=== PATIENT | female | born 1945 | race Caucasian/White ===

== ENCOUNTER 2019-04-23 13:52 | Outpatient (CLI) | payer MEDICARE, SELFPAY ==
--- NOTE | ~2019-04-23 | DEXA_ITS ---
Bone Density Report Name: Anitha Katz Age: 73 Sex: Female Ethnicity: White Date of : 1945 Indication: postmenopausal; hysterectomy; Referring Provider: PHYSICIAN NOT ON STAFF Study: Bone densitometry was performed. Exam Date: April 23, 2019 Accession number: [id number] Bone Density: Region BMD T-score Z-score Classification AP Spine (L1-L4) 1.081 0.3 2.7 Normal Femoral Neck (Left) 0.722 -1.1 0.9 Osteopenia Total Hip (Left) 0.906 -0.3 1.5 Normal Total Hip Bilateral Avg 0.850 -0.8 1.0 Normal Femoral Neck (Right) 0.693 -1.4 0.6 Osteopenia Total Hip (Right) 0.792 -1.2 0.5 Osteopenia World Health Organization criteria for BMD impression classify patients as: Normal (T-score at or above -1.0), Osteopenia (T-score between -1.0 and -2.5), or Osteoporosis (T-score at or below -2.5). 10-year Fracture Risk(1): Major Osteoporotic Fracture 11% Hip Fracture 2.0% Reported Risk Factors: [place] (), Neck BMD=0.693, BMI=28.2 (1) FRAX(R) Version 3.08. Fracture probability calculated for an untreated patient. Fracture probability may be lower if the patient has received treatment. Previous Exams: Region Exam Age BMD T-score BMD Change BMD Change Date g/cm2 vs Baseline vs Previous AP Spine(L1-L4) 04/23/2019 73 1.081 0.3 0.020(1.9%)# 0.014(1.3%)# 01/16/2012 66 1.067 0.2 0.006(0.6%)# 0.000(0.0%)# 07/18/2007 61 1.067 0.2 0.006(0.6%) 0.006(0.6%) 07/07/2004 58 1.061 0.1 Total Hip(Left) 04/23/2019 73 0.906 -0.3 0.045(5.2%)# -0.001(-0.2%)# 01/16/2012 66 0.908 -0.3 0.047(5.4%)# 0.017(1.9%)# 07/18/2007 61 0.890 -0.4 0.029(3.4%)* 0.029(3.4%)* 07/07/2004 58 0.861 -0.7 Total Hip(Right) 04/23/2019 73 0.792 -1.2 -0.030(-3.6%)# -0.064(-7.4%)# 01/16/2012 66 0.856 -0.7 0.034(4.1%)# 0.020(2.4%)# 07/18/2007 61 0.835 -0.9 0.014(1.7%) 0.014(1.7%) 07/07/2004 58 0.822 -1.0 *Denotes significance at 95% confidence level, LSC for AP Spine = 0.022 g/cm2, LSC for Total Hip = 0.027 g/cm2 Clinical Information Provided by Patient: Has used the following medications: HRT (i.e. estrogen/hormone therapy), Vitamin D, Calcium Has the following medical conditions: Hysterectomy Patient maximum height was 64 Menopause Age: 49 Onset of menses at age 13 Number of children 1 Impression: The patient has low bone mass, based on the Right Femoral Neck T-score.
== END 2019-04-23 13:53 | disposition home or self-care (01) ==
DX: Z78.0 Asymptomatic menopausal state (principal); M85.89 Other specified disorders of bone density and structure, multiple sites
CPT/HCPCS: 77080

== ENCOUNTER 2020-02-21 14:33 | Outpatient (CLI) | payer MEDICARE, SELFPAY ==
--- NOTE | ~2020-02-21 | MM_ITS ---
EXAMINATION: MM screening derian BI w fletcher HISTORY: Screening mammogram, family history of breast cancer in her sister. TECHNIQUE: Craniocaudal and mediolateral oblique 3-D tomosynthesis images were obtained and synthetic 2-D images were generated. CAD analysis was submitted and interpreted. COMPARISON: 02/07/2019, 01/29/2018, 01/26/2017 BREAST PARENCHYMAL COMPOSITION: There are scattered areas of fibroglandular density. FINDINGS: RIGHT BREAST: There is asymmetry in the subareolar aspect of the breast on the mediolateral oblique v iew. LEFT BREAST: There is no evidence of suspicious mass, calcification, or architectural distortion to s uggest malignancy. There has been no significant interval change. IMPRESSION: 1. Subareolar right breast asymmetry on the mediolateral oblique view. 2. Additional mammographic views and possible breast ultrasound are recommended. BI-RADS Category 0: Incomplete: Needs additional imaging evaluation. Reviewed, dictated and finalized at location A. ER CAMP COUNSELOR IMPRESSION: 1. Subareolar right breast asymmetry on the mediolateral oblique view. 2. Additional mammographic views and possible breast ultrasound are recommended . BI-RADS Category 0: Incomplete: Needs additional imaging evaluation.
== END 2020-02-21 14:34 | disposition home or self-care (01) ==
PROVIDERS: Visit Provider Nurse Practitioner Obstetrics & Gynecology
DX: Z12.31 Encounter for screening mammogram for malignant neoplasm of breast (principal); R92.8 Other abnormal and inconclusive findings on diagnostic imaging of breast
CPT/HCPCS: 77063; 77067

== ENCOUNTER 2020-03-23 12:49 | Outpatient (CLI) | payer MEDICARE, SELFPAY ==
--- NOTE | ~2020-03-23 | MM_ITS ---
EXAMINATION: MM diagnostic mammo unilat RT HISTORY: Asymmetry reported in subareolar right breast on 02/21/2020 screening mammogram TECHNIQUE: Additional 3-D tomosynthesis images of the right breast were performed and synthetic 2-D i mages were generated. CAD analysis was submitted and interpreted. COMPARISON: 01/26/2017 , 02/07/2019, 01/29/2018, 01/26/2017 bilateral digital screening mammogram ex aminations BREAST PARENCHYMAL COMPOSITION: There are scattered areas of fibroglandular density. FINDINGS: No suspicious mass or architectural distortion, malignant calcification, skin thickening or retraction or significant new or developing density is detected. IMPRESSION: 1. No mammographic evidence of malignancy 2. Routine annual mammographic screening is recommended. BI-RADS Category 1: Negative Reviewed, dictated and finalized at location A. CLERK
== END 2020-03-23 12:50 | disposition home or self-care (01) ==
LOC: ANHIMG 12:50
PROVIDERS: Visit Provider Nurse Practitioner Obstetrics & Gynecology
DX: R92.8 Other abnormal and inconclusive findings on diagnostic imaging of breast (principal)
CPT/HCPCS: 77065

== ENCOUNTER 2021-03-25 09:46 | Outpatient (CLI) | payer MEDICARE, SELFPAY ==
--- NOTE | ~2021-03-25 | MM_ITS ---
EXAMINATION: MM screening dreian BI w fletcher HISTORY: Screening mammogram, family history of breast cancer in her sister. TECHNIQUE: Craniocaudal and mediolateral oblique 3-D tomosynthesis images were obtained and synthetic 2-D images were generated. CAD analysis was submitted and interpreted. COMPARISON: 03/23/2020, 02/21/2020, 02/07/2019, 01/29/2018 BREAST PARENCHYMAL COMPOSITION: There are scattered areas of fibroglandular density. FINDINGS: There is no evidence of suspicious mass, calcification, or architectural distortion to sugg est malignancy in either breast. There has been no suspicious interval change. IMPRESSION: 1. No mammographic evidence of malignancy. 2. Recommend routine screening mammography in one year. BI-RADS Category 1: Negative Reviewed, dictated and finalized at location A. EY MAINTAINER
== END 2021-03-25 09:47 | disposition home or self-care (01) ==
LOC: ANHIMG 09:48
PROVIDERS: Visit Provider Nurse Practitioner Obstetrics & Gynecology
DX: Z12.31 Encounter for screening mammogram for malignant neoplasm of breast (principal)
CPT/HCPCS: 77063; 77067

== ENCOUNTER 2021-10-29 09:49 | Emergency (ER) | payer MEDICARE, SELFPAY ==
--- NOTE | ~2021-10-29 | XR_ITS ---
EXAMINATION: XR knee LT 3V DATE: 10/29/2021 11:02 INDICATION: Diffuse left knee pain TECHNIQUE: Three views of the left knee were obtained. COMPARISON: None. FINDINGS: Alignment is normal. No fracture or osteochondral lesion. There is moderate tricompartmenta l osteoarthritis. A small knee joint effusion is present. Soft tissues are unremarkable. IMPRESSION: 1. Moderate osteoarthritis with small knee joint effusion. Reviewed, dictated and finalized at location B.
[2021-10-29 10:02] VITALS: BP 154/74; PULSE 93; RESP 16; TEMP 36.7; O2SAT 99
--- NOTE | 2021-10-29 10:10 | ED.EXTPRO ---
HPI - Extremity Problem General Stated complaint: LEFT LEG PAIN Time Seen by Provider: 10/29/21 10:38 Source: patient and RN notes reviewed Mode of arrival: ambulatory Limitations: no limitations History of Present Illness HPI Narrative: 76-year-old female presents concern for left knee pain. She reports she has arthritis, she has had a flareup of arthritis in the last 3 weeks. She has been taking precautions to improve her arthritis pain with rest, ice, decrease in exercise. Reports her arthritis symptoms started to improve. Reports last night she was going downstairs when she felt this sharp sudden stabbing pain to the medial anterior knee. She reports she used ice throughout the night, took 2 Aleve and rested. She reports pain with bending the knee, pain with walking. She reports she cannot find position of comfort at rest. She denies any redness, swelling. Reports the knee feels slightly warmer. She denies fever, body aches, chills, sweats. MD Complaint: extremity pain Related Data Home Medications Medication Instructions Recorded Confirmed conjugated estrogens 0.3 mg tablet 0.3 mg DAILY 02/09/19 02/09/19 (Premarin) thyroid (pork) 60 mg tablet 60 mg DAILY 02/09/19 02/09/19 ([place] Thyroid) Allergies Allergy/AdvReac Type Severity Reaction Status Date / Time codeine AdvReac Mild light Verified 02/09/19 10:48 headed, nausea Review of Systems Review of Systems: CONSTITUTIONAL: Denies malaise, chills, sweats, or fever. SKIN: Denies rash or itching, open skin, laceration, abrasion, redness, swelling. MUSCULOSKELETAL: Reports left knee pain NEUROLOGIC: Denies numbness, weakness All systems reviewed & are unremarkable except as noted in HPI and below PMFSH Social History Social History Gender identity (if verbalized by the patient): Female Comments At time of signature, agree with nursing past medical, surgical, social and family history. There is no relevant family history pertinent to the presenting complaint Exam Narrative: GENERAL: Well-appearing, well-nourished, and in no acute distress. HEAD: Normocephalic, atraumatic. EYES: PERRLA, conjunctivae clear NECK: Supple. CHEST: Speaks in full sentences. No respiratory distress. HEART: Regular rate and rhythm. Normal and equal peripheral pulses. EXTREMITIES: Left knee has normal strength and sensation, normal range of motion. No edema erythema, warmth, or ecchymosis. 5/5 strength with knee flexion and extension. Normal sensation with sensitivity to light touch and pain. Mild anterior medial tenderness. No open wounds, no skin tenting, no devitalized tissue or atrophy, no trophic changes, no obvious deformity, alignment normal, nearby joints and structures intact. Distal pulses palpable and equal bilaterally, skin warm, dry, pink. Capillary refill less than 3 seconds. Lever test negative SKIN: Warm, dry, no rash. NEURO: Alert and oriented x3. PSYCH: Normal mood and affect Course Course Emergency Course: Patient is aware of diagnosis, understands and agrees to treatment plan. Anticipatory guidance given. Patient agrees to follow-up as directed and is aware of reasons to seek care at the emergency department. Portions of this record may have been created with voice recognition software Level of Care: Express Care Visit Vital Signs Vital signs: Vital Signs Temperature 98.0 F 10/29/21 10:02 Pulse Rate 93 10/29/21 10:02 Respiratory Rate 16 10/29/21 10:02 Blood Pressure 154/74 H 10/29/21 10:02 Pulse Oximetry 99 10/29/21 10:02 Oxygen Delivery Room Air 10/29/21 10:02 Temperature 98.0 F 10/29/21 10:02 Pulse Rate 93 10/29/21 10:02 Respiratory Rate 16 10/29/21 10:02 Blood Pressure 154/74 H 10/29/21 10:02 Pulse Oximetry 99 10/29/21 10:02 Oxygen Delivery Room Air 10/29/21 10:02 Reviewed. MDM - Extremity (Nontraumatic) Imaging Data My impression: Images reviewed, interpreted by nasim be
== END 2021-10-29 11:34 | disposition home or self-care (01) ==
PROVIDERS: Emergency Provider Nurse Practitioner
DX: M25.462 Effusion, left knee (principal); E03.9 Hypothyroidism, unspecified
CPT/HCPCS: 73562; 99213; G0463

== ENCOUNTER 2022-05-12 10:31 | Outpatient (CLI) | payer MEDICARE, SELFPAY ==
--- NOTE | ~2022-05-12 | MM_ITS ---
EXAMINATION: MM screening derian BI w fletcher HISTORY: Screening TECHNIQUE: Craniocaudal and mediolateral oblique 3-D tomosynthesis images were obtained and synthetic 2-D images were generated. CAD analysis was submitted and interpreted. COMPARISON: Comparison to multiple prior studies sequentially, with oldest reviewed study dated 01/13. BREAST PARENCHYMAL COMPOSITION: Breast composed of scattered areas of fibroglandular density FINDINGS: There is no evidence of suspicious mass, calcification, or architectural distortion to sugg est malignancy in either breast. There has been no suspicious interval change. IMPRESSION: 1. No mammographic evidence of malignancy. 2. Recommend routine screening mammography in one year. BI-RADS Category 1: Negative Reviewed, dictated and finalized at location A.
== END 2022-05-12 10:32 | disposition home or self-care (01) ==
PROVIDERS: PCP Internal Medicine; Visit Provider Nurse Practitioner Obstetrics & Gynecology
DX: Z12.31 Encounter for screening mammogram for malignant neoplasm of breast (principal)
CPT/HCPCS: 77063; 77067

== ENCOUNTER 2022-08-12 08:49 | Outpatient (CLI) | payer MEDICARE, SELFPAY ==
--- NOTE | ~2022-08-12 | DEXA_ITS ---
Bone Density Report Name: JOANN DIAMOND Age: 76 Sex: Female Ethnicity: White Date of : 1945 Indication: osteopenia; height loss; hysterectomy; postmenopausal Referring Provider: THUY, SVEN Study: Bone densitometry was performed. Exam Date: August 12, 2022 Accession number: [id number] Bone Density: Region BMD T-score Z-score Classification AP Spine(L1-L4) 1.052 0.0 2.6 Normal Femoral Neck (Left) 0.712 -1.2 1.0 Osteopenia Total Hip (Left) 0.869 -0.6 1.3 Normal Femoral Neck (Right) 0.691 -1.4 0.8 Osteopenia Total Hip (Right) 0.849 -0.8 1.2 Normal Total Hip Mean 0.859 -0.7 1.3 Normal World Health Organization criteria for BMD impression classify patients as: Normal (T-score at or above -1.0), Osteopenia (T-score between -1.0 and -2.5), or Osteoporosis (T-score at or below -2.5). 10-year Fracture Risk(1): Major Osteoporotic Fracture 12% Hip Fracture 2.5% Reported Risk Factors: [place] (), Neck BMD=0.691, BMI=30.1 (1) FRAX(R) Version 3.08. Fracture probability calculated for an untreated patient. Fracture probability may be lower if the patient has received treatment. Previous Exams: Region Exam Age BMD T-score BMD Change BMD Change Date g/cm2 vs Baseline vs Previous AP Spine (L1-L4) 08/12/2022 76 1.052 0.0 -0.030 (-2.8%) -0.030 (-2.8%) 04/23/2019 73 1.081 0.3 Total Hip(Left) 08/12/2022 76 0.869 -0.6 -0.037 (-4.1%) -0.037 (-4.1%) 04/23/2019 73 0.906 -0.3 Total Hip(Right) 08/12/2022 76 0.849 -0.8 0.057 (7.2%)* 0.057 (7.2%)* 04/23/2019 73 0.792 -1.2 *Denotes significance at 95% confidence level, LSC for AP Spine = 0.022 g/cm2, LSC for Total Hip = 0.027 g/cm2 Clinical Information Provided by Patient: Has used the following medications: Vitamin D, Calcium Has the following medical conditions: Hysterectomy Patient maximum height was 64 Menopause Age: 49 Onset of menses at age 12 Number of children 1 Impression: The patient has low bone mass, based on the Right Femoral Neck T-score. The patient has an estimated ten-year risk of hip fracture of 2.5% and an estimated ten-year risk of major fracture of 12%, based on the WHO FRAX algorithm. The BMD for the AP Spine (L1-L4) decreased, changing by -2.8% since the last DXA exam. The BMD for the Total Hip(Left) decreased, changing by -4.1% since the last DXA exam. Discussion: BONE DENSITY IS LOW AT ONE OR MORE SKELETAL SITES. Thi
== END 2022-08-12 08:50 | disposition home or self-care (01) ==
LOC: ANHIMG 08:54
PROVIDERS: PCP Internal Medicine; Visit Provider Internal Medicine
DX: Z13.820 Encounter for screening for osteoporosis (principal); M85.852 Other specified disorders of bone density and structure, left thigh; M85.851 Other specified disorders of bone density and structure, right thigh
CPT/HCPCS: 77080

== ENCOUNTER 2023-06-05 13:24 | Emergency (ER) | payer MEDICARE, SELFPAY ==
--- NOTE | ~2023-06-05 | CT_ITS ---
EXAMINATION: CT brain wo con DATE: 06/05/2023 14:58 INDICATION: dizzy . TECHNIQUE: Computed tomography (CT) of the head was performed without intravenous contrast. The mA wa s adjusted according to patient size. Iterative reconstruction technique was employed. The dose-lengt h product was 605.33 mGy-cm. COMPARISON: None. FINDINGS: No acute intracranial hemorrhage or extra-axial fluid collection. No hydrocephalus, mass, or herniation. No acute ischemic infarct. Unremarkable dural venous sinus attenuation. No acute osseous abnormality. The aerated spaces are clear. Mild atrophy and chronic white matter change. Atherosclerotic intracranial calcification. IMPRESSION: No acute intracranial process. Reviewed, dictated and finalized at location K.
--- NOTE | ~2023-06-05 | XR_ITS ---
EXAMINATION: XR chest 2V Exam Date/Time: 06/05/2023 19:20 CDT HISTORY: dizziness, nausea and vomiting Comparison: None. RESULT: Lines, tubes, and devices: None. Lungs and pleura: Mild peripheral and basilar reticular opacities. No focal consolidation, pleural e ffusion, or pneumothorax. Cardiomediastinal silhouette: Stable. Other: No acute osseous or upper abdominal finding. IMPRESSION: No acute cardiopulmonary process. Peripheral reticular opacities may represent chronic interstitial d isease such as UIP. Reviewed, dictated and finalized at location K. IMPRESSION: No acute cardiopulmonary process. Peripheral reticular opacities may represent chronic interstitial disease such as UIP.
[2023-06-05 13:34] VITALS: BP 120/53; PULSE 84; RESP 15; TEMP 36.3; O2SAT 100
--- NOTE | 2023-06-05 14:37 | ED.GENADULT ---
HPI - General Adult General Chief complaint: Nausea/Vomiting/Diarrhea <Elizabeth Amato June, Last Filed: 06/05/23 14:44> Stated complaint: N/V/D, dizzy <Elizabeth Amato June, Last Filed: 06/05/23 14:44> Time Seen by Provider: 06/05/23 14:38 <Elizabeth Amato June, Last Filed: 06/05/23 14:44> Focused HPI: Anitha Katz is a 77 y/o female who presents today with reports of having onset of feeling light headed at around 1145, she felt like she was drunk and she couldn't walk straight, she proceed to try to eat something and that didn't help and then she started to vomit. She states she has continued to feel light headed, head spinning and nauseated/ no headache/ no vision changes Denies abdominal pain. No recent illness GENERAL: Well-appearing, well-nourished, and in no acute distress. HEAD: Normocephalic, atraumatic. CHEST: Clear to auscultation. ?No respiratory distress. HEART: Regular rate and rhythm.? NEURO: ?Alert and oriented x3. Patient screened in triage and initial orders placed.? ?Additional care and disposition to be based upon?diagnostic testing and treatment. <Elizabeth Amato June, Last Filed: 06/05/23 14:44> Related Data Home medications: Home Medications Medication Instructions Recorded Confirmed conjugated estrogens 0.3 mg tablet 0.3 mg DAILY 02/09/19 02/09/19 (Premarin) thyroid (pork) 60 mg tablet 60 mg DAILY 02/09/19 02/09/19 ([place] Thyroid) <Elizabeth Amato June, Last Filed: 06/05/23 14:44> Allergies/adverse reactions: Allergies Allergy/AdvReac Type Severity Reaction Status Date / Time codeine AdvReac Mild light Verified 02/09/19 10:48 headed, nausea <Elizabeth Amato June, Last Filed: 06/05/23 14:44> Review of Systems Review of Systems: CONSTITUTIONAL: Denies fever EYES: Denies visual changes CARDIOVASCULAR: Denies chest pain, palpitations RESPIRATORY: Denies shortness of breath GASTROINTESTINAL: Reports nausea, vomiting. Denies abdominal pain GENITOURINARY: Denies dysuria or hematuria. MUSCULOSKELETAL: Denies back pain NEUROLOGIC: Denies numbness, or weakness. <Madonna Gordon PA-C - Last Filed: 06/05/23 20:58> All systems reviewed & are unremarkable except as noted in HPI and below <Madonna Gordon PA-C - Last Filed: 06/05/23 20:58> PMFSH Past Medical History Medical History: Medical History (Updated 06/05/23 @ 20:46 by Madonna Gordon PA-C) History of hypothyroidism <Elizabeth Amato June, NURSE RECEPTIONIST - Last Filed: 06/05/23 14:44> Social History Social History: Social History (Updated 06/05/23 @ 20:46 by Madonna Gordon PA-C) Substance use: never Gender identity (if verbalized by the patient): Female <Elizabeth Amato June, NURSE RECEPTIONIST - Last Filed: 06/05/23 14:44> Exam Narrative: GENERAL: Well-appearing, well-nourished, and in no acute distress. HEAD: Normocephalic, atraumatic. EYES: PERRLA and EOMI. ENT: Nares clear, no rhinorrhea or epistaxis. Mucous membranes moist. Oropharynx without tonsillar hypertrophy exudate or other lesions. Bilateral TMs pearly zuniga non-bulging NECK: Supple. No adenopathy or masses. No JVD CHEST: Clear to auscultation. No respiratory distress. No wheezes rales or rhonchi HEART: Regular rate and rhythm. No murmur heard. Normal peripheral pulses. EXTREMITIES: Normal range of motion. No edema. Strength equal in bilateral upper and lower extremities (5/5) SKIN: Warm, dry, no rash. NEURO: No focal deficits. Alert and oriented x3. CN II-XII grossly intact. Normal gait PSYCH: Normal mood and affect <Madonna Gordon PA-C - Last Filed: 06/05/23 20:58> Course Course Emergency Course: Patient and family updated on workup and agree with plan of care <Madonna Gordon PA-C - Last Filed: 06/05/23 20:58> Vital Signs Vital signs: Vital Signs Temperature 97.4 F L 06/05/23 13:34 Pulse Rate 84 06/05/23 13:34 Respiratory Rate 15 06/05/23 13:34 Blood Pressure 120/53 L 06/05/23 13:34 P
--- NOTE | 2023-06-05 14:44 | ECG_ITS ---
SEE SCANNED COPY FOR CONFIRMED REPORT MTDD
[2023-06-05] MEDS: MECLIZINE HCL 25 MG TABLET PO (15:42)
[2023-06-05] MEDS: ONDANSETRON INJ 4 MG/2 ML VIAL IV PUSH (15:42)
[2023-06-05 15:53] LABS: Basophils Percent Auto 0.3 % (0.2-1.2); Eosinophils Percent Auto 0.3 % (0-4.4); Hematocrit 40.2 % (37.0-47.0); Hemoglobin 13.7 g/dL (12.0-15.0); Immature Granulocyte Absolute 0.04 K/mm3 (0.00-0.031); Immature Granulocyte Percent A 0.4 % (0-0.5); Lymphocytes Absolute Auto 1.01 K/mm3 (0.9-3.2); Lymphocytes Percent Auto 9.5 % (18.3-44.2); Mean Corpuscular HGB Conc 34.1 g/dl (32-36); Mean Corpuscular Hemoglobin 31.4 pg (26-34); Mean Corpuscular Volume 92.2 fl (80-100); Mean Platelet Volume 9.5 fl (7.4-10.4); Monocytes Absolute Auto 0.6 K/mm3 (0.1-0.6); Monocytes Percent Auto 5.9 % (2.6-8.5); Neutrophils Absolute Auto 8.9 K/mm3 (1.3-6.7); Neutrophils Percent Auto 83.6 % (45.5-73.1); Platelet Count Result 276 k/mm3 (150-375); Red Blood Count 4.36 M/mm3 (4.2-5.4); Red Cell Distribution Width 13.1 % (11.5-14.5); White Blood Count 10.6 K/mm3 (4.5-10.0)
[2023-06-05 16:04] LABS: Alanine Aminotransferase 21 U/L (6-35); Albumin Level 4.6 g/dL (3.5-5.1); Alkaline Phosphatase 99 U/L (38-126); Anion Gap 5 mmol/L (4-12); Aspartate Amino Transferase 32 U/L (14-36); Bilirubin,Total 0.7 mg/dL (0.2-1.3); Blood Urea Nitrogen 19 mg/dL (7-17); Calcium 10.2 mg/dL (8.4-10.2); Carbon Dioxide 29 mmol/L (22-30); Chloride 100 mmol/L (98-107); Estimated CRCL calculation 49 ml/min; Estimated Glomerular Filt Rate > 60; Glucose 127 mg/dL (65-110); Potassium 3.7 mmol/L (3.4-5.0); Sodium 134 mmol/L (137-145)
[2023-06-05 16:18] LABS: Troponin I < 0.012 ng/mL (0.000-0.034)
[2023-06-05] MEDS: SODIUM CHLORIDE 0.9% IV 500 ML 999 ML IV CONT (19:30)
[2023-06-05 19:33] VITALS: BP 143/58; PULSE 79; RESP 18; O2SAT 100
[2023-06-05 19:45] LABS: Appearance Urine Clear (Clear); Bacteria Urine Rare /hpf; Bilirubin Urine Negative (Negative); Blood Urine Negative (Negative); Color Urine Yellow (Yellow); Glucose Urine UA Negative (Negative); Ketones Urine 3+ mg/dL (Negative); Leukocyte Esterase Ur 1+ LEU/UL (Negative); Need Manual Microscopic Reviewed; Nitrate Urine Negative (Negative); Non Pathogenic Casts 0-2; Protein Urine Trace mg/dL (Negative); Specific Grav Ur 1.019 (1.001-1.035); Squamous Epithelial Cell Urine None Seen /hpf (Few); Urobilinogen Urine 0.2 mg/dL (<2.0); WBC Urine 0-5 /hpf (0-3); pH Urine 7.5 (5.0-9.0)
[2023-06-05 19:55] LABS: Add Urine Microscopic? YES
== END 2023-06-05 21:09 | disposition home or self-care (01) ==
PROVIDERS: Nurse Practitioner Family; Emergency Provider Physician Assistant; PCP Internal Medicine
DX: R42 Dizziness and giddiness (principal); E03.9 Hypothyroidism, unspecified; R94.31 Abnormal electrocardiogram [ECG] [EKG]
CPT/HCPCS: 36415; 70450; 71046; 80053; 81001; 84443; 84484; 85025; 93005; 96361; 96374; 99284; A9270; J2405; J7040

== ENCOUNTER 2023-07-05 13:55 | Outpatient (CLI) | payer MEDICARE, SELFPAY ==
--- NOTE | ~2023-07-05 | MM_ITS ---
EXAMINATION: MM screening derian BI w fletcher HISTORY: Screening TECHNIQUE: Craniocaudal and mediolateral oblique 3-D tomosynthesis images were obtained and synthetic 2-D images were generated. CAD analysis was submitted and interpreted. COMPARISON: Comparison to multiple prior studies sequentially, with oldest reviewed study dated 01/13. BREAST PARENCHYMAL COMPOSITION: Not dense: There are scattered areas of fibroglandular density. FINDINGS: There are developing asymmetries in the upper central aspect of the right breast with possi ble architectural distortion on MLO view. The left breast is stable without evidence for malignancy. IMPRESSION: 1. Developing asymmetries of the right breast. 2. Additional mammographic views and possible breast ultrasound are recommended. BI-RADS Category 0: Incomplete: Needs additional imaging evaluation. Reviewed, dictated and finalized at location A. IMPRESSION: 1. Developing asymmetries of the right breast. 2. Additional mammographic views and possible breast ultrasound are recommended . BI-RADS Category 0: Incomplete: Needs additional imaging evaluation.
== END 2023-07-05 13:56 | disposition home or self-care (01) ==
LOC: ANHIMG 13:59
PROVIDERS: PCP Internal Medicine; Visit Provider Nurse Practitioner Obstetrics & Gynecology
DX: Z12.31 Encounter for screening mammogram for malignant neoplasm of breast (principal); R92.8 Other abnormal and inconclusive findings on diagnostic imaging of breast
CPT/HCPCS: 77063; 77067

== ENCOUNTER 2023-07-24 12:49 | Outpatient (CLI) | payer MEDICARE, SELFPAY ==
--- NOTE | ~2023-07-24 | MMUS_ITS ---
EXAMINATION: MM diagnostic derian RT w fletcher, US breast RT limited HISTORY: Follow-up right breast asymmetries TECHNIQUE: Additional 3-D tomosynthesis images of the right breast were performed and synthetic 2-D i mages were generated. CAD analysis was submitted and interpreted. High resolution Limited right breas t ultrasound was performed. COMPARISON: Comparison to multiple prior studies sequentially, with oldest reviewed study dated 01/14. BREAST PARENCHYMAL COMPOSITION: Not dense: There are scattered areas of fibroglandular density. FINDINGS: MAMMOGRAPHIC FINDINGS: The areas of nodular asymmetry in the right breast are less apparent with spot compression and mediol ateral views, likely superimposed fibroglandular tissue. ULTRASOUND: Limited right breast ultrasound: Normal heterogeneous echotexture without focal solid or cystic mass. IMPRESSION: 1. No evidence for malignancy in the right breast. 2. Routine yearly screening mammogram and regular clinical breast examination are recommended. BI-RADS Category 1: Negative Reviewed, dictated and finalized at location B. IMPRESSION: 1. No evidence for malignancy in the right breast. 2. Routine yearly screening mammogram and regular clinical breast examination a re recommended. BI-RADS Category 1: Negative
== END 2023-07-24 12:50 | disposition home or self-care (01) ==
PROVIDERS: PCP Internal Medicine; Visit Provider Nurse Practitioner Obstetrics & Gynecology
DX: R92.8 Other abnormal and inconclusive findings on diagnostic imaging of breast (principal)
CPT/HCPCS: 76642; 77061; 77065; G0279

== ENCOUNTER 2024-08-15 09:59 | Outpatient (CLI) | payer MEDICARE, SELFPAY ==
--- NOTE | ~2024-08-15 | MM_ITS ---
EXAMINATION: MM screening derian BI w fletcher HISTORY: Screening mammogram, family history of breast cancer in her sister. TECHNIQUE: Craniocaudal and mediolateral oblique 3-D tomosynthesis images were obtained and synthetic 2-D images were generated. CAD analysis was submitted and interpreted. COMPARISON: 07/05/2023, 05/12/2022, 03/25/2020, 02/21/2020 BREAST PARENCHYMAL COMPOSITION:Not Dense. There are scattered areas of fibroglandular density. FINDINGS: No suspicious mass, calcification, or architectural distortion are identified in either jose ast to suggest malignancy. There has been no suspicious interval change. IMPRESSION: No mammographic evidence of malignancy. Recommend routine screening mammography in one year. BI-RADS Category 1: Negative Reviewed, dictated and finalized at location .
--- OUTSIDE RECORDS SUMMARY | 2024-08-15 10:17 | XMS_ITS | Encounter Summary ---
Author Organization [facility] Address [address] [place] [address] Care Team Providers Care Senior Quality Technician Name Role Phone Raul Gutierrez MD Primary Care Provider [phone] Encounter Details Date Type Department Care Team (Late st Contact Info) Description 11/01/2005 Outpatient Historical [facility] Internal Medicine [facility] [address] [place] [id number] Raul Gutierrez MD [address] [place] [address] Social History Tobacco Use Types Packs/Day Years Used Date Smoking Tobacco: Never Assessed Comments Unknown Sex and Gender Information Value Date Recorded Sex Assigned at Not on file Legal 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
--- OUTSIDE RECORDS SUMMARY | 2024-08-15 10:17 | XMS_ITS | Clinical Summary ---
Author Organization [employer] Address [address] [place] [address] Care Team Providers Care Nurses' Association Counselor Name Role Phone Unavailable Primary Care Provider Unavailabl e Allergies No known active allergies Medications VITAMIN C 500 mg Oral CpSR 1 Every Day 30.00 0 11/30/2006 Active FOLIC ACID 0.8 mgg Oral TabIndications:R outine general medical examination at a health care facility Take 800 mcg by mouth daily. Active VITAMIN B-2 25 mg Oral TabIndications:R outine general medical examination at a health care facility Take 12.5 Tabs by mouth daily. Active VITAMIN B-6 25 mg Oral TabIndications:R outine general medical examination at a health care facility Take 12.5 mg by mouth daily. Active VITAMIN B-12 POIndications:Ro utine general medical examination at a health care facility Take by mouth. Active ASPIRIN 81 mg Oral TabIndications:R outine general medical examination at a health care facility Take 81 mg by mouth daily. Active CALCIUM CARB/VIT D3/MINERALS (CALTRATE 600+D PLUS MINERALS ORAL) Take 2 Tabs by mouth daily. Active PREMARIN 0.3 mg tablet 10/27/2014 Active thyroid, pork, (ARMOUR THYROID) 60 mg tablet Take 1 Tablet (60 mg) by mouth daily. 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 11/23/2007 Plantar fascial fibromatosis 05/23/2005 11/23/2007 Hematuria 12/20/2004 11/23/2007 Overview (03/10/2010): Updating IMO/ICD9 Code and Description Lumbago 12/20/2004 11/23/2007 Routine general medical exam ination at a health care facility 11/16/2004 11/23/2007 HYPOTHYROIDISM NOS 11/15/2004 5 Abnormal mammogram, unspecified 11/15/2004 11/23/2007 Immunizations Immunization Administration Dates Next Due (PNEUMOVAX 23)(50 YRS UP) PN EUMOCOCCAL POLYSACCHARIDE (PPV23) 0.5 ML, IM 12/22/2014 (TDVAX)(7 YRS UP) TETANUS AN D DIPHTHERIA TOXOIDS, ADSORBED (2 LF OF TETANUS TOXOID AND 2 LF OF DIPHTHERIA TOXOID), 0.5ML (PF), IM 11/01/2005 Influenza Vaccine High Dose 65+ Yrs IM 5,12/20/2013 Family History Medical History Relation Name Comments Colon Cancer Neg Hx Relation Name Status Comments Father Mother Social History Tobacco Use Types Packs/Day Years Used Date Smoking Tobacco: Never Smokeless Tobacco: Never Alcohol Use Standard Drinks/Week Comments Yes 0 (1 standard drink = 0.6 oz pur e alcohol) rarely Comments No Sex and Gender Information Value Date Recorded Sex Assigned at Not on file Legal Sex Female 5:20 AM TAILMAN Gender Identity Not on file Sexual Orientation Not on file Occupation Industry Job Start Date Job End Date Not on file Not on file Not on file Not on file Last Filed Vital Signs Vital Sign Reading Time Taken Comments Blood Pressure 116/70 12/22/2014 9:17 AM TAILMAN Pulse 76 12/22/2014 9:17 AM TAILMAN Temperature 36.4 C (97.6 F) 12/22/2014 9:17 AM TAILMAN Respiratory Rate 16 12/22/2014 9:17 AM TAILMAN Oxygen Saturation 95% 02/24/2014 8:50 AM TAILMAN Inhaled Oxygen Concentration - - Weight 71.6 kg (157 lb 12.8 oz) 12/22/2014 9:17 AM TAILMAN Height 165.1 cm (5' 5) 12/22/2014 9:17 AM TAILMAN Body Mass Index 26.26 12/22/2014 9:17 AM TAILMAN Plan of Treatment Health Maintenance Due Date Last Done Comments ZOSTER VACCINE (1 of 2) 1994 DTAP/TDAP/TD VACCINES (1 - Tdap) 11/02/2005 11/02/19 06 PNEUMOCOCCAL VACCINE 50+ YEA RS (2 of 2 - PCV) 12/23/2015 12/22/2014 OSTEOPOROSIS SCREENING 01/22/2019 4, 01/16/2012 (Previously completed), 07/18/2007 RSV VACCINE (60+ or ) (1 - 1-dose 75+ series) 09/29/2019 INFLUENZA VACCINE (#1) 2023 12/22/2014, 2013 COLORECTAL SCREENING Discontinued 02/24/2014, 02/24/2014, 11/13/2004 Colorectal Cancer Screening Discontinued FIT-DNA Q 3 years Discontinued FIT/FOBT Q 1 year Discontinued Flex Sig/CT Colonography Q 5 years Discontinued Procedures Procedure Name Priority Date/Time Associated Diagnosis Comments XR DEXA BONE DENSITY AXIAL 1 OR MORE SITES Routine 01/22/2014 3:01 PM TAILMAN Post-menopausal from Last 3 Months or Most Recently Relevant to Health Maintenance Results * XR DEXA BONE DENSITY AXIAL 1 OR MORE SITES (01/22/2014 3:01 PM TAILMAN) Anatomical Region Laterality Modality Digital Radiogra phy 01/22/2014 2:5 3 PM TAILMAN Narrative 01/22/2014 3:33 PM TAILMAN XR DEXA BONE DENSITY AXIAL 1 OR MORE SITES Dictated from Location 1 ([facility]) HISTORY: 68 yo F with postmenopausal symptoms on calcium supplementation needing evaluation for osteoporosis. PROCEDURE: Using a [employer] dual energy x-ray absorptiometry system, the patient's bone mineral density was measured over the lumbar spine and femoral necks. Comparison was made to age and sex matched normal values. FINDINGS: Lumbar Spine (L1-L4) Bone Mineral Density = 1.223 gm/cm2 Compared to young adult (T-score), difference of +0.4 Standard Deviations. The patient's spine BMD is normal when compared to that of a young adult. Left Femoral Neck Bone Mineral Density = 0.867 gm/cm2 Compared to young adult (T-score), difference of -1.2 Standard Deviations. The patient's left femoral neck BMD is osteopenic when compared to that of a young adult. Right Femoral Neck Bone Mineral Density = 0.839 gm/cm2 Compared to young adult (T-score), difference of -1.4 Standard Deviations. The patient's right femoral neck BMD is osteopenic when compared to that of a young adult. No prior DEXA studies are available for comparison. Procedure Note Jah Little, DO - 01/22/2014 XR DEXA BONE DENSITY AXIAL 1 OR MORE SITES Dictated from Location 1 ([facility]) HISTORY: 68 yo F with postmenopausal symptoms on calcium supplementation needing evaluation for osteoporosis. PROCEDURE: Using a [employer] dual energy x-ray absorptiometry system, the patient's bone mineral density was measured over the lumbar spine and femoral necks. Comparison was made to age and sex matched normal values. FINDINGS: Lumbar Spine (L1-L4) Bone Mineral Density = 1.223 gm/cm2 Compared to young adult (T-score), difference of +0.4 Standard Deviations. The patient's spine BMD is normal when compared to that of a young adult. Left Femoral Neck Bone Mineral Density = 0.867 gm/cm2 Compared to young adult (T-score), difference of -1.2 Standard Deviations. The patient's left femoral neck BMD is osteopenic when compared to that of a young adult. Right Femoral Neck Bone Mineral Density = 0.839 gm/cm2 Compared to young adult (T-score), difference of -1.4 Standard Deviations. The patient's right femoral neck BMD is osteopenic when compared to that of a young adult. No prior DEXA studies are available for comparison. Raul Gutierrez MD DIAGNOSTIC IMAGING ORDERABLES Final Result from Last 3 Months or Most Recently Relevant to Health Maintenance Insurance MEDICARE PART A AND B [employer] Advance Directives For more information, please contact: [phone] Documents on File Type Date Recorded Patient Superintendent Job Expl anation Advance Directive POA 12/28/2011 1:59 PM Advance Directive POA Advance Directive Living Will 12/28/2011 * Full Code (Latest Code Status on File) Date Activated Date Inactivated Comments 02/24/2014 7:52 AM 02/24/2014 11:20 AM
--- OUTSIDE RECORDS SUMMARY | 2024-08-15 10:17 | XMS_ITS | Encounter Summary ---
Author Organization [facility] Address [address] [place] [address] Care Team Providers Care Cafe Aide Name Role Phone Raul Gutierrez MD Primary Care Provider [phone] Encounter Details Date Type Department Care Team (Latest Contact Info) Description 05/09/2006 Outpatient Historical [facility] Internal Medicine [place] [address] [place] [address] Raul Gutierrez MD [address] [place] [address] Other Abnormal Clinical Finding (Primary Dx) Social History Tobacco Use Types Packs/Day Years Used Date Smoking Tobacco: Never Assessed Comments Unknown Sex and Gender Information Value Date Recorded Sex Assigned at Not on file Legal Sex Female 5:20 AM PATIENT ACCESS DIRECTOR Gender Identity Not on file Sexual Orientation Not on file documented as of this encounter Plan of Treatment Not on file documented as of this encounter Procedures Procedure Name Priority Date/Time Associated Diagnosis Comments LIPID PANEL Routine 05/09/2006 10:20 AM CDT documented in this encounter Results * (ABNORMAL) LIPID PANEL (05/09/2006 10:20 AM CDT) CHOLESTEROL 197 100 - 199 mg/dL INTERFACE SYSTEM TRIGLYCERIDE 60 10 - 149 mg/dL INTERFACE SYSTEM HDL 82(H) 40 - 59 mg/dL INTERFACE SYSTEM CHOL/HDL RATIO 2.4 2.0 - 5.0 INTER FACE SYSTEM LDL CALCULATED 103(H) <=99 mg/dL INTERFACE SYSTEM LIPID PANEL COMMENT See Below INTERFACE SYSTEM Comment: The adult ATP and pediatric NCEP classifications for lipids are available on the [facility] Intranet at: [email or web address] Select: Lab Policies and Procedures Select: Reference Ranges - Lipids 05/09/2006 10:2 0 AM CDT us Raul Gutierrez MD CHEMISTRY ORDERABLES Edited INTERFACE SYSTEM Refer to clinic/hospital department documented in this encounter Visit Diagnoses Diagnosis Other abnormal clinical finding- Primary documented in this encounter Care Teams Cafe Aide Relationship Specialty Start Date End Date Raul Gutierrez MD [address] [place] [address] PCP - General 12/20/04 03/25/15 documented as of this encounter
--- OUTSIDE RECORDS SUMMARY | 2024-08-15 10:17 | XMS_ITS | Encounter Summary ---
Author Organization [facility] Address [address] [place] [address] Care Team Providers Care Stenographer Print Shop Name Role Phone Raul Gutierrez MD Primary Care Provider [phone] Encounter Details Date Type Department Care Team (Late st Contact Info) Description 11/01/2005 Orders Only [facility] [address] [place] [address] Raul Gutierrez MD [address] [place] [address] Social History Tobacco Use Types Packs/Day Years Used Date Smoking Tobacco: Never Assessed Comments Unknown Sex and Gender Information Value Date Recorded Sex Assigned at Not on file Legal Sex Female 5:20 AM TUFTER OPERATOR Gender Identity Not on file Sexual Orientation Not on file documented as of this encounter Progress Notes * Raul Gutierrez MD - 11/27/2007 6:12 PM CDT BLOOD PRESSURE: 100/62 Right Arm Sitting PULSE: 68 Right Radial, Regular RESPIRATIONS: 18 WEIGHT: 159lbs TEMPERATURE: 97.8??f Oral HEIGHT: 64in NURSE NAME: Kiya Kaur S ALLERGIES: No known drug allergies. MEDICATIONS: Medication list current. CHIEF COMPLAINT f/u thyroid HISTORY: HISTORY: 244.9-HYPOTHYROIDISM The hypothyroidism has not changed. The patient denies any symptoms of hypothyroidism such as dry skin, hoarseness, loss of energy, cold intolerance, or weight gain. No complications noted from the medication presently being used. No recent laboratory work done.the pt notes sheis stable on her current thyroid meds. V70.0-ROUTINE GENERAL MEDICAL EXAMINATION The patient is doing well with no specific complaints noted. The patient is here for a routine examination. No significant complaints noted.the pt is here for a pe and the pt notes that overall she feels well. the pt had a ct of the abdomen last yr showing a granuloma in the lung that was calcified and hepatic cysts. the pt notes no abd or pulmonary symptoms. the pt has hx of hypothyroidism and the pt is on thyroid meds for this. CURRENT PROBLEM LIST: 244.9 HYPOTHYROIDISM 599.7 HEMATURIA 724.2 LOW BACK PAIN 728.71 PLANTAR FASCIITIS 793.80 UNSPECIFIED ABNORMAL MAMMOGRAM V70.0 ROUTINE GENERAL MEDICAL EXAMINATION CURRENT MEDICATION LIST: CALCIUM 500/D ORAL TABLET 500-200 MG-UNIT, 2 Every Day THYROID ORAL TABLET 60 MG, 1 Every Day MULTIVITAMINS ORAL TABLET, 1 Every Day FOLIC ACID ORAL TABLET 800 MCG, 1 Every Day VITAMIN B COMPLEX ORAL TABLET, 1 Every Day PREMARIN ORAL TABLET 0.3 MG, 1 Every Day BIOTIN ORAL TABLET 2.5 MG, PANTOTHENIC ACID ORAL TABLET 100 MG, 1/2 Every Day NAPROSYN ORAL TABLET 375 MG, 1 Two Times A Day VITAMIN B-1 ORAL TABLET 50 MG, VITAMIN B-2 ORAL TABLET 25 MG, 1/2 Every Day VITAMIN B-3 ORAL TABLET 100 MG, 1/2 Every Day VITAMIN B-6 ORAL TABLET 25 MG, 1/2 Every Day CURRENT ALLERGY LIST: NKDA ROS: GENERAL: Normal activity and energy level, no change in appetite. No major weight gain or loss. No malaise, chills, fever, diaphoresis. ALLERGIC/IMMUNOLOGIC: No hay fever or history of environmental allergies. No chronic problems with immunity. EYES: No vision changes or diplopia. ENT: No hearing loss, epistaxis, hoarseness or dysphagia. No sinus congestion. ENDOCRINE: No heat or cold intolerance, no excessive thirst. CARDIAC: No chest pain, palpitations, orthopnea, dyspnea on exertion, or paroxysmal nocturnal dyspnea. RESPIRATORY: No dyspnea, cough, hemoptysis or wheezing. SKIN/BREAST/CHEST: No rashes or non-healing lesions. No breast symptoms noted. HEMATOLOGIC/LYMPHATIC: No anemia, easy bruising, bleeding or swollen nodes. : No frequency, urgency, hematuria or dysuria. GI: No abdominal pain, nausea, vomiting, diarrhea, constipation, melena, or hematochezia. NEUROLOGIC: No weakness, dizziness, loss of consciousness, transient ischemic symptoms, or seizures. MUSCULOSKELETAL: No muscle or joint pain, weakness, swelling or inflammation. No restriction of motion, no atrophy or backache. PSYCHIATRIC: No increased nervousness, mood changes or depression. Coping well. PAST MEDICAL HISTORY: MEDICAL: Hypothyroidism. SURGICAL: Dilatation and curettage of the uterus, hysterectomy. ALLERGIES/ADVERSE REACTIONS: No known drug allergies. FAMILY HISTORY: FATHER: The cause of was heart disease. MOTHER: The mother is living. Illnesses: Heart disease, hypertension. SOCIAL HISTORY: MARITAL HISTORY: , living with spouse. TOBACCO USE: Has no significant smoking history. ALCOHOL: Drinks a minimal amount of alcohol. PHYSICAL EXAMINATION: CONSTITUTIONAL: GENERAL APPEARANCE: Healthy appearing patient in no distress. EYES: CONJUNCTIVAE/LIDS: Conjunctivae and lids appear normal. PUPILS: Pupils equal and normally reactive to light and accommodation. EARS, NOSE, MOUTH AND THROAT: EXTERNAL/EARS AND NOSE: Overall appearance normal with no scars, lesions or masses. EARS: Tympanic membranes shiny without retraction. Canals unremarkable. Hearing grossly normal. NOSE (AND SINUS): No abnormality of the nose or sinuses is noted. ORAL: Inspection of gums, lips, palate, and teeth normal. No scars, lesions, or masses. Oral mucosaunremarkable with non-inflamed posterior pharynx. NECK/THYROID: Trachea midline. No thyroid enlargement, tenderness, or mass. No supraclavicular or cervical adenopathy. RESPIRATORY: Clear to auscultation and percussion. Normal respiratory effort. CARDIOVASCULAR: CARDIAC: Regular rhythm. No murmurs, rubs, or gallops. ARTERIAL: Aortic pulses of normal amplitude with no bruits. JUGULAR VEINS Jugular veins within normal limits. EDEMA/VARICOSITIES OF EXTREMITIES: No edema or varicosities. LYMPHATICS: No lymphadenopathy in the neck, axillae, or groin. GASTROINTESTINAL: ABDOMEN: Soft, non-tender, without masses. Bowel sounds active. LIVER/SPLEEN/KIDNEY: No hepatosplenomegaly, tenderness or nodularity. Kidneys not palpable. MUSCULOSKELETAL EXAM: EXTREMITIES: PE/MS/BILAT UPPER EXT No misalignment or tenderness. Full range of motion. Normal stability, strength and tone. BILATERAL LOWER EXTREMITIES: No misalignment or tenderness. Full range of motion. Normal stability,strength and tone. SKIN: SKIN: Warm, dry, no diaphoresis, no significant lesions, irritation, rashes or ulcers. No induration, obvious subcutaneous nodules or tightening. NEUROLOGIC: CRANIAL NERVES: manager stylist II-XII grossly intact. PSYCHIATRIC: Judgment appropriate. Oriented. Normal memory. Mood and affect appropriate. ASSESSMENT/PLAN: 244.9-HYPOTHYROIDISM ASSESSMENT: The patient's hypothyroidism is unchanged. Will not change medication, continue to monitor for complications. Will check laboratory to assess disease effect, to assess medication effect. Clinical guidelines reviewed. Protocol reviewed.the pt will cont on her current thyroid med and will adjust this based on the lab tests. V70.0-ROUTINE GENERAL MEDICAL EXAMINATION ASSESSMENT: The patient is doing well and no distinct problems were identified on exam.the pt will cont with diet and exercise. will check blood work and will also check a us of the liver and gb and a chest x-ray. the pt will call back if she has any complaints. a td will be given today. LAB ORDERS: Order number: [id number] Test Ordered: LIPID PANEL 1078 Order number: [id number] Test Ordered: ALT 1294 Order number: [id number] Test Ordered: BASIC METABOLIC PANEL 1607 Order number: [id number] Test Ordered: TSH 1720 Order number: [id number] Test Ordered: CHEST XRAY Order number: [id number] Test Ordered: US LIVER Order number: [id number] Test Ordered: INJ-TETANUS & DIPTHERIA TOXOID [id number] HEALTH MAINTENANCE: LAST MAMMOGRAM DATE: 07/19. LAST DATE COLONOSCOPY: 11/17. ( normal) RETURN VISIT : Patient instructed to return in 1 year. Electronically Signed by: Raul Gutierrez MD on Tuesday, November 01, 2005 documented in this encounter Plan of Treatment Not on file documented as of this encounter Visit Diagnoses Not on filedocumented in this encounter Care Teams Stenographer Print Shop Relationship Specialty Start Date End Date Raul Gutierrez MD [address] [place] [address] PCP - General 12/20/04 03/25/15 documented as of this encounter
--- OUTSIDE RECORDS SUMMARY | 2024-08-15 10:17 | XMS_ITS | Encounter Summary ---
Author Organization [facility] Address [address] [place] [address] Care Team Providers Care Call Person Name Role Phone Raul Gutierrez MD Primary Care Provider [phone] Encounter Details Date Type Department Care Team (Late st Contact Info) Description 05/23/2005 Outpatient Historical [facility] [place] Internal Medicine [facility] 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 Gender Identity Not on file Sexual Orientation Not on file documented as of this encounter Last Filed Vital Signs Vital Sign Reading Time Taken Comments Blood Pressure 130/70 05/23/2005 1:15 PM CDT Pulse 88 05/23/2005 1:15 PM CDT Temperature 36.9 C (98.5 F) 05/23/2005 1:15 PM CDT Respiratory Rate 16 05/23/2005 1:15 PM CDT Oxygen Saturation - - Inhaled Oxygen Concentration - - Weight 73.5 kg (162 lb) 05/23/2005 1:15 PM CDT Height 162.6 cm (5' 4) 05/23/2005 1:15 PM CDT Body Mass Index 27.81 05/23/2005 1:15 PM CDT documented in this encounter Plan of Treatment Not on file documented as of this encounter Visit Diagnoses Not on filedocumented in this encounter Care Teams Call Person Relationship Specialty Start Date End Date Raul Gutierrez MD [address] [place] [address] PCP - General 12/20/04 03/25/15 documented as of this encounter
--- OUTSIDE RECORDS SUMMARY | 2024-08-15 10:17 | XMS_ITS | Encounter Summary ---
Author Organization [facility] Address [address] [place] [address] Care Team Providers Care Chemical Production Engineer Name Role Phone Raul Gutierrez MD Primary Care Provider Encounter Details Date Type Department Care Team (Late st Contact Info) Description 10/27/2003 Outpatient Historical [facility] Internal Medicine [facility] [address] [place] [id number] Raul Gutierrez MD [address] [place] [address] Social History Tobacco Use Types Packs/Day Years Used Date Smoking Tobacco: Never Assessed Comments Unknown Sex and Gender Information Value Date Recorded Sex Assigned at Not on file Legal Sex Female 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
--- OUTSIDE RECORDS SUMMARY | 2024-08-15 10:17 | XMS_ITS | Encounter Summary ---
Author Organization [facility] Address [address] [place] [address] Care Team Providers Care Gaming Worker Name Role Phone Raul Gutierrez MD Primary Care Provider [phone] Encounter Details Date Type Department Care Team (Late st Contact Info) Description 11/30/2006 Orders Only [facility] [address] [place] [address] Raul Gutierrez MD [address] [place] [address] Social History Tobacco Use Types Packs/Day Years Used Date Smoking Tobacco: Never Assessed Comments Unknown Sex and Gender Information Value Date Recorded Sex Assigned at Not on file Legal Sex Female 5:20 AM OPHTHALMIC TECHNOLOGIST Gender Identity Not on file Sexual Orientation Not on file documented as of this encounter Progress Notes * Raul Gutierrez MD - 06/29/2007 12:38 PM CDT BLOOD PRESSURE: 120/64 Right Arm Sitting PULSE: 76 Right Radial, Regular RESPIRATIONS: 18 WEIGHT: 169lbs TEMPERATURE: 96.8??f Oral HEIGHT: 64in NURSE NAME: Princess Lee ALLERGIES: No known drug allergies. MEDICATIONS: Medication list current. CHIEF COMPLAINT pe HISTORY: HISTORY: 244.9-HYPOTHYROIDISM The hypothyroidism is stable. The patient denies any symptoms of hypothyroidism such as dry skin, hoarseness, loss of energy, cold intolerance, or weight gain. No complications noted from the medication presently being used. No recent laboratory work done. V70.0-ROUTINE GENERAL MEDICAL EXAMINATION The patient is doing well with no specific complaints noted. The patient is here for a routine examination. No significant complaints noted. CURRENT PROBLEM LIST: 122.8 ECHINOCOCCOSIS 244.9 HYPOTHYROIDISM 599.7 HEMATURIA 724.2 LOW BACK PAIN 728.71 PLANTAR FASCIITIS 793.80 UNSPECIFIED ABNORMAL MAMMOGRAM 796.4 OTHER NONSPECIFIC ABNORMAL FINDINGS V70.0 ROUTINE GENERAL MEDICAL EXAMINATION CURRENT MEDICATION LIST: CALCIUM 500/D ORAL TABLET 500-200 MG-UNIT, 2 Every Day MULTIVITAMINS ORAL TABLET, 1 Every [...] ORAL TABLET 25 MG, 1/2 Every Day THYROID ORAL TABLET 60 MG, 1 Every Day VITAMIN C CR ORAL CAPSULE CONTROLLED RELEASE 500 MG, 1 Every Day CURRENT ALLERGY LIST: NKDA ROS: GENERAL: Normal activity and energy level, no change in appetite. No major weight gain or loss. No malaise, chills, fever, diaphoresis. ALLERGIC/IMMUNOLOGIC: No hay fever or history of environmental allergies. No chronic problems with immunity. EYES: No vision changes or diplopia. ENT: No hearing loss, epistaxis, hoarseness or dysphagia. No sinus congestion. ENDOCRINE: See HISTORY OF PRESENT ILLNESS. CARDIAC: No chest pain, palpitations, orthopnea, dyspnea [...] HISTORY: MARITAL HISTORY: , living with spouse. LIVING WILL: The patient does not have a living will. TOBACCO USE: Has no significant smoking history. [...] rhythm. No murmurs, rubs, or gallops. ARTERIAL: No aortic bruits. JUGULAR VEINS Jugular veins within normal limits. EDEMA/VARICOSITIES OF EXTREMITIES: No edema or varicosities. LYMPHATICS: No lymphadenopathy in the neck. GASTROINTESTINAL: ABDOMEN: Soft, non-tender, without masses. Bowel sounds active. LIVER/SPLEEN/KIDNEY: No hepatosplenomegaly, tenderness or nodularity. Kidneys not palpable. MUSCULOSKELETAL EXAM: SPINE/RIBS/PELVIS: No kyphosis, lordosis, full range of motion. Normal stability, strength and tone. EXTREMITIES: PE/MS/BILAT UPPER EXT No misalignment or tenderness. Full range of motion. Normal stability, strength and tone. BILATERAL LOWER EXTREMITIES: No misalignment or tenderness. Full range of motion. Normal stability,strength and tone. NEUROLOGIC: CRANIAL NERVES: sourcing specialist II-XII grossly intact. PSYCHIATRIC: Judgment appropriate. Oriented. Normal memory. Mood and affect appropriate. ASSESSMENT/PLAN: 244.9-HYPOTHYROIDISM ASSESSMENT: The patient appears stable. Will follow for signs of hypothyroidism. Will not change medication, continue to monitor for complications. Will check laboratory to assess disease effect, to assess medication effect. Clinical guidelines reviewed. Protocol reviewed. V70.0-ROUTINE GENERAL MEDICAL EXAMINATION ASSESSMENT: The patient is doing well and no distinct problems were identified on exam.the pt has anormal pe. the pt has seen her isobutylene operator chief this yr and had a pap pelvic and mammo. the pt had a bmd two or three yrs ago that was normal. LAB ORDERS: Order number: [id number] Test Ordered: COMPREHENSIVE METABOLIC PANEL & GFR 1112 Order number: [id number] Test Ordered: CBC W/ DIFFERENTIAL 3150 Order number: [id number] Test Ordered: TSH 1720 HEALTH MAINTENANCE: LAST BREAST EXAM DATE: 07/20. LAST PAP DATE: 07/20. LAST DATE PELVIC EXAM: 07/20. LAST MAMMOGRAM DATE: 07/20. LAST TD: 2005 RETURN VISIT : Patient instructed to return in 1 year. Return visit not discussed with patient. Electronically Signed by: Raul Gutierrez MD on , November 30, 2006 documented in this encounter Plan of Treatment Not on file documented as of this encounter Visit Diagnoses Not on filedocumented in this encounter Care Teams Gaming Worker Relationship Specialty Start Date End Date Raul Gutierrez MD [address] [place] [address] PCP - General 12/20/04 03/25/15 documented as of this encounter
--- OUTSIDE RECORDS SUMMARY | 2024-08-15 10:17 | XMS_ITS | Encounter Summary ---
Author Organization [facility] Address [address] [place] [address] Care Team Providers Care Protective Signal Installer Name Role Phone Raul Gutierrez MD Primary Care Provider [phone] Encounter Details Date Type Department Care Team (Latest Contact Info) Description 12/20/2004 Outpatient Historical [facility] Raul Acosta MD [address] [place] [address] HEMATURIA (Primary Dx) Social History Tobacco Use Types Packs/Day Years Used Date Smoking Tobacco: Never Assessed Comments Unknown Sex and Gender Information Value Date Recorded Sex Assigned at Not on file Legal Sex Female 5:20 AM PUZZLE ASSEMBLER Gender Identity Not on file Sexual Orientation Not on file documented as of this encounter Plan of Treatment Not on file documented as of this encounter Procedures Procedure Name Priority Date/Time Associated Diagnosis Comments COMPREHENSIVE METABOLIC PANEL Routine 12/20/2004 3:26 PM PUZZLE ASSEMBLER documented in this encounter Results * COMPREHENSIVE METABOLIC PANEL (12/20/2004 3:26 PM PUZZLE ASSEMBLER) GLUCOSE 92 65 - 109 mg/dL INTERFACE SYSTEM CREATININE 0.8 0.4 - 1.2 mg/dL INTERFACE SYSTEM CALCIUM 9.2 8.6 - 10.2 mg/dL INTERFACE SYSTEM AST 26 12 - 32 U/L INTERFACE SYSTEM ALKALINE PHOSPHATASE 95 35 - 104 U/L INTERFACE SYSTEM BUN 15 6 - 20 mg/dL INTERFACE SYSTEM BILIRUBIN TOTAL 0.2 0.2 - 1.0 mg/dL INTERFACE SYSTEM ALBUMIN 4.2 3.4 - 4.8 g/dL INTERFACE SYSTEM TOTAL PROTEIN 7.3 6.3 - 8.6 g/dL INTERFACE SYSTEM ALT 18 0 - 31 U/L INTERFACE SYSTEM SODIUM 141 135 - 145 mmol/L INTERFACE SYSTEM POTASSIUM 4.5 3.5 - 4.9 mmol/L INTERFACE SYSTEM CHLORIDE 106 96 - 108 mmol/L INTERFACE SYSTEM CO2 27 22 - 30 mmol/L INTERFACE SYSTEM 12/20/2004 3:26 PM PUZZLE ASSEMBLER us Raul Gutierrez MD CHEMISTRY ORDERABLES Final Res ult INTERFACE SYSTEM Refer to clinic/hospital department documented in this encounter Visit Diagnoses Diagnosis Hematuria- Primary documented in this encounter Care Teams Protective Signal Installer Relationship Specialty Start Date End Date Raul Gutierrez MD [address] [place] [address] PCP - General 12/20/04 03/25/15 documented as of this encounter
--- OUTSIDE RECORDS SUMMARY | 2024-08-15 10:17 | XMS_ITS | Encounter Summary ---
Author Organization [facility] Address [address] [place] [address] Care Team Providers Care Personal Lines Sales Executive Name Role Phone Raul Gutierrez MD Primary Care Provider [phone] Encounter Details Date Type Department Care Team (Late st Contact Info) Description 11/30/2006 Outpatient Historical [facility] Internal Medicine [facility] [address] [place] [address] Raul Gutierrez MD [address] [place] [address] Social History Tobacco Use Types Packs/Day Years Used Date Smoking Tobacco: Never Assessed Comments Unknown Sex and Gender Information Value Date Recorded Sex Assigned at Not on file Legal Sex Female 5:20 AM CLINICAL DIRECTOR Gender Identity Not on file Sexual Orientation Not on file documented as of this encounter Last Filed Vital Signs Vital Sign Reading Time Taken Comments Blood Pressure 120/64 11/30/2006 9:15 AM CDT Pulse 76 11/30/2006 9:15 AM CDT Temperature 36 C (96.8 F) 11/30/2006 9:15 AM CDT Respiratory Rate 18 11/30/2006 9:15 AM CDT Oxygen Saturation - - Inhaled Oxygen Concentration - - Weight 76.7 kg (169 lb) 11/30/2006 9:15 AM CDT Height 162.6 cm (5' 4) 11/30/2006 9:15 AM CDT Body Mass Index 29.01 11/30/2006 9:15 AM CDT documented in this encounter Plan of Treatment Not on file documented as of this encounter Visit Diagnoses Not on filedocumented in this encounter Care Teams Personal Lines Sales Executive Relationship Specialty Start Date End Date Raul Gutierrez MD [address] [place] [address] PCP - General 12/20/04 03/25/15 documented as of this encounter
--- OUTSIDE RECORDS SUMMARY | 2024-08-15 10:17 | XMS_ITS | Encounter Summary ---
Author Organization [facility] Address [address] [place] [address] Care Team Providers Care Registered Radiation Therapist Name Role Phone Raul Gutierrez MD Primary Care Provider [phone] Encounter Details Date Type Department Care Team (Late st Contact Info) Description 12/20/2004 Outpatient Historical [facility] Internal Medicine [facility] [address] [place] [address] Raul Gutierrez MD [address] [place] [address] Social History Tobacco Use Types Packs/Day Years Used Date Smoking Tobacco: Never Assessed Comments Unknown Sex and Gender Information Value Date Recorded Sex Assigned at Not on file Legal Sex Female 5:20 AM SAUSAGE GRINDER Gender Identity Not on file Sexual Orientation Not on file documented as of this encounter Last Filed Vital Signs Vital Sign Reading Time Taken Comments Blood Pressure 110/70 12/20/2004 3:00 PM SAUSAGE GRINDER Pulse 76 12/20/2004 3:00 PM SAUSAGE GRINDER Temperature 36.3 C (97.3 F) 12/20/2004 3:00 PM SAUSAGE GRINDER Respiratory Rate 20 12/20/2004 3:00 PM SAUSAGE GRINDER Oxygen Saturation - - Inhaled Oxygen Concentration - - Weight 74.4 kg (164 lb) 12/20/2004 3:00 PM SAUSAGE GRINDER Height 162.6 cm (5' 4) 12/20/2004 3:00 PM SAUSAGE GRINDER Body Mass Index 28.15 12/20/2004 3:00 PM SAUSAGE GRINDER documented in this encounter Plan of Treatment Not on file documented as of this encounter Visit Diagnoses Not on filedocumented in this encounter Care Teams Registered Radiation Therapist Relationship Specialty Start Date End Date Raul Gutierrez MD [address] [place] [address] PCP - General 12/20/04 03/25/15 documented as of this encounter
--- OUTSIDE RECORDS SUMMARY | 2024-08-15 10:17 | XMS_ITS | Encounter Summary ---
Author Organization [facility] Address [address] [place] [address] Care Team Providers Care Curing Pickling Packer Name Role Phone Raul Gutierrez MD Primary Care Provider [phone] Encounter Details Date Type Department Care Team (Late st Contact Info) Description 12/01/2006 Orders Only [facility] Diabetic [facility] [address] [place] [address] Raul Gutierrez MD [address] [place] [address] Social History Tobacco Use Types Packs/Day Years Used Date Smoking Tobacco: Never Assessed Comments Unknown Sex and Gender Information Value Date Recorded Sex Assigned at Not on file Legal Sex Female 5:20 AM MORTICIAN HELPER Gender Identity Not on file Sexual Orientation Not on file documented as of this encounter Progress Notes * Raul Gutierrez MD - 06/29/2007 12:58 PM CDT TIME:11:21 am PATIENT`S HOME PHONE: PATIENT`S WORK PHONE: PATIENT`S INSURANCE: [employer] [facility] WHO TOOK THE CALL: Kiya Kaur S GENERAL INFORMATION LAST VISIT: 11-30-06 PCP: lor. WHO CALLED: Patient called. PHARMACY NUMBER: mail to pt SECTION 1: REQUESTED ACTION denita 12/01/06 at 11:21 am: MEDICATION REQUEST: Patient requests a refill.please mail MEDICATIONS: THYROID ORAL TABLET 65 MG, 1 Every Day, 90 Dispensed, status: NEW PRESCRIPTION, 12/01/2006. lf 10/19 DOCTOR`S RESPONSE: ryan 12/01/06 at 11:26 am Refill now with 6 additional refills. FINAL ACTION: gus 12/01/06 at 11:36 am rx mailed to pt Electronically Signed by: Princess Howard on Friday, December 01, 2006 documented in this encounter Plan of Treatment Not on file documented as of this encounter Visit Diagnoses Not on filedocumented in this encounter Care Teams Curing Pickling Packer Relationship Specialty Start Date End Date Raul Gutierrez MD [address] [place] [address] PCP - General 12/20/04 03/25/15 documented as of this encounter
--- OUTSIDE RECORDS SUMMARY | 2024-08-15 10:17 | XMS_ITS | Encounter Summary ---
Author Organization [facility] Address [address] [place] [address] Care Team Providers Care Predatory Hunter Name Role Phone Raul Gutierrez MD Primary Care Provider [phone] Encounter Details Date Type Department Care Team (Latest Contact Info) Description 11/08/2005 Outpatient Historical [facility], RD [address] [place] [address] Other and Unspecified Hyperlipidemia (Primary Dx) Social History Tobacco Use Types Packs/Day Years Used Date Smoking Tobacco: Never Assessed Comments Unknown Sex and Gender Information Value Date Recorded Sex Assigned at Not on file Legal Sex Female 5:20 AM MAMMOGRAPHY TECH Gender Identity Not on file Sexual Orientation Not on file documented as of this encounter Plan of Treatment Not on file documented as of this encounter Visit Diagnoses Diagnosis Other and unspecified hyperlipidemia- Primary documented in this encounter Care Teams Predatory Hunter Relationship Specialty Start Date End Date Raul Gutierrez MD [address] [place] [address] PCP - General 12/20/04 03/25/15 documented as of this encounter
--- OUTSIDE RECORDS SUMMARY | 2024-08-15 10:17 | XMS_ITS | Encounter Summary ---
Author Organization [facility] Address [address] [place] [address] Care Team Providers Care Field Marketing Director Name Role Phone Raul Gutierrez MD Primary Care Provider [phone] Encounter Details Date Type Department Care Team (Late st Contact Info) Description 11/01/2005 Outpatient Historical [facility] Internal Medicine [facility] [address] [place] [address] Raul Gutierrez MD [address] [place] [address] Social History Tobacco Use Types Packs/Day Years Used Date Smoking Tobacco: Never Assessed Comments Unknown Sex and Gender Information Value Date Recorded Sex Assigned at Not on file Legal Sex Female 5:20 AM VULNERABILITY RESEARCHER Gender Identity Not on file Sexual Orientation Not on file documented as of this encounter Plan of Treatment Not on file documented as of this encounter Visit Diagnoses Not on filedocumented in this encounter Care Teams Field Marketing Director Relationship Specialty Start Date End Date Raul Gutierrez MD [address] [place] [address] PCP - General 12/20/04 03/25/15 documented as of this encounter
--- OUTSIDE RECORDS SUMMARY | 2024-08-15 10:17 | XMS_ITS | Encounter Summary ---
Author Organization [facility] Address [address] [place] [address] Care Team Providers Care Ext Js Developer Name Role Phone Raul Gutierrez MD Primary Care Provider [phone] Encounter Details Date Type Department Care Team (Latest Contact Info) Description 11/30/2006 Outpatient Historical [facility] Internal Medicine [place] [address] [address] [place] [address] Raul Gutierrez MD [address] [place] [address] Routine General Medical Examination at a Health Care Facility (Primary Dx) Social History Tobacco Use Types Packs/Day Years Used Date Smoking Tobacco: Never Assessed Comments Unknown Sex and Gender Information Value Date Recorded Sex Assigned at Not on file Legal Sex Female 5:20 AM ROLL ICER Gender Identity Not on file Sexual Orientation Not on file documented as of this encounter Plan of Treatment Not on file documented as of this encounter Procedures Procedure Name Priority Date/Time Associated Diagnosis Comments CBC WITH DIFFERENTIAL Routine 11/30/2006 9:45 AM CDT CBC WITH DIFFERENTIAL Routine 11/30/2006 9:45 AM CDT TSH Routine 11/30/2006 9:45 AM CDT COMPREHENSIVE METABOLIC PANEL Routine 11/30/2006 9:45 AM CDT documented in this encounter Results * CBC WITH DIFFERENTIAL (11/30/2006 9:45 AM CDT) NEUTROPHILS 59 45 - 70 % INTERFAC E SYSTEM LYMPHOCYTES 31 16 - 45 % INTERFAC E SYSTEM MONOCYTES 8 3 - 13 % INTERFACE SYSTEM EOSINOPHILS 1 0 - 7 % INTERFAC E SYSTEM BASOPHILS 0 0 - 2 % INTERFACE SYSTEM NEUTROPHIL ABSOLUTE 3.43 1.90 - 7.00 K/uL INTERFACE SYSTEM LYMPHOCYTE ABSOLUTE 1.83 0.70 - 4.50 K/uL INTERFACE SYSTEM MONOCYTE ABSOLUTE 0.49 0.10 - 1.30 K/uL INTERFACE SYSTEM EOSINOPHIL ABSOLUTE 0.08 0.00 - 0.70 K/uL INTERFACE SYSTEM BASOPHILS ABSOLUTE 0.02 0.00 - 0.20 K/uL INTERFACE SYSTEM 11/30/2006 9:45 AM CDT Raul Gutierrez MD HEMATOLOGY ORDERABLES Edited Performing Organization Address City/[facility] Co de Phone Number INTERFACE SYSTEM Refer to clinic/hospital department * CBC WITH DIFFERENTIAL (11/30/2006 9:45 AM CDT) WBC 5.9 4.0 - 9.8 K/uL INTERFACE SYSTEM RBC 4.42 3.90 - 4.90 M/uL INTERFACE SYSTEM HEMOGLOBIN 13.7 11.8 - 14.8 g/dL INTERFACE SYSTEM HEMATOCRIT 40.9 35.5 - 44.0 % INTERFACE SYSTEM MCV 92.5 82.0 - 99.0 fL INTERFACE SYSTEM MCH 31.0 27.2 - 32.6 pg INTERFACE SYSTEM MCHC 33.5 31.5 - 35.5 % INTERFACE SYSTEM RDW 13.1 11.5 - 14.5 % INTERFACE SYSTEM RDW-STDEV 43.9 37.1 - 48.7 fL INTERFACE SYSTEM PLATELETS 330 140 - 350 K/uL INTERFACE SYSTEM MPV 10.4 9.3 - 12.4 fL INTERFACE SYSTEM 11/30/2006 9:45 AM CDT Raul Gutierrez MD HEMATOLOGY ORDERABLES Edited Performing Organization Address [facility] Co de Phone Number INTERFACE SYSTEM Refer to clinic/hospital department * TSH (11/30/2006 9:45 AM CDT) TSH 2.43 0.27 - 4.20 uU/mL INTERFACE SYSTEM 11/30/2006 9:45 AM CDT Raul Gutierrez MD CHEMISTRY ORDERABLES Edited INTERFACE SYSTEM Refer to clinic/hospital department * COMPREHENSIVE METABOLIC PANEL (11/30/2006 9:45 AM CDT) GLUCOSE 98 65 - 99 mg/dL INTERFACE SYSTEM CREATININE 0.79 0.51 - 0.95 mg/dL INTERFACE SYSTEM CALCIUM 8.8 8.4 - 10.2 mg/dL INTERFACE SYSTEM ALKALINE PHOSPHATASE 76 35 - 104 U/L INTERFACE SYSTEM AST 30 12 - 32 U/L INTERFACE SYSTEM ALT 21 0 - 31 U/L INTERFACE SYSTEM TOTAL PROTEIN 7.1 6.3 - 8.6 g/dL INTERFACE SYSTEM ALBUMIN 4.1 3.4 - 4.8 g/dL INTERFACE SYSTEM BILIRUBIN TOTAL 0.3 0.2 - 1.0 mg/dL INTERFACE SYSTEM BUN 17 6 - 20 mg/dL INTERFACE SYSTEM CO2 28 22 - 30 mmol/L INTERFACE SYSTEM GFR, >60 >=60 mL/min/1.7 sq meter INTERFACE SYSTEM GFR >60 >=60 mL/min/1.7 sq meter INTERFACE SYSTEM Comment: Estimated GFR rate interpretative information for both Americans and non- Americans is available on the [facility] Intranet at: [email or web address] Select: Lab Policies and Procedures Select: Reference Ranges - GFR SODIUM 137 135 - 145 mmol/L INTERFACE SYSTEM POTASSIUM 4.2 3.5 - 4.9 mmol/L INTERFACE SYSTEM CHLORIDE 102 96 - 108 mmol/L INTERFACE SYSTEM 11/30/2006 9:45 AM CDT Raul Gutierrez MD CHEMISTRY ORDERABLES Edited INTERFACE SYSTEM Refer to clinic/hospital department documented in this encounter Visit Diagnoses Diagnosis Routine general medical examination at a health care facility- Primary documented in this encounter Care Teams Ext Js Developer Relationship Specialty Start Date End Date Raul Gutierrez MD [address] [place] [address] PCP - General 12/20/04 03/25/15 documented as of this encounter
--- OUTSIDE RECORDS SUMMARY | 2024-08-15 10:17 | XMS_ITS | Data Portability ---
Author Organization [facility] Address [address] [place] [address] [place] [address] Assessment Encounter Date Assessment Date Assessment LastModified by Organization Details LastModified Time 03/26/2020 03/26/2020 Annual gynecological exam performed. Patient will come back in a year unless there are new symptoms. Not available 03/25/2020 14:02:02 04/11/2022 04/11/2022 Annual gynecological exam performed. Patient will come back in a year unless there are new symptoms. Not available 04/11/2022 11:04:38 04/15/2024 04/15/2024 Annual gynecological exam performed. Patient will come back in a year unless there are new symptoms. [email or web address] Not available 04/15/2024 11:01:31 Plan of Treatment Reminders Order Date Submit Date Provider Last Modified By Organization Details Last Modified Time Details Appointments None recorded. Lab None recorded. Referral None recorded. Procedures None recorded. Surgeries None recorded. Imaging MAMMO, screening, bilateral 2022 023 [facility], [address], [address], [place], [address], 05:01:41 Medication Orders clobetasol 0.05 % topical cream 2022 023 [id number], [address] [facility], [place], [place], [id number], 11:24:35 clotrimazol e-betametha sone 1 %-0.05 % topical cream 2021 [address] [id number], [address] [facility], [place], [place], [id number], 3 11:05:13 clotrimazol e-betametha sone 1 %-0.05 % topical cream [id number], [address] [place], [address], 3 11:05:13 Premarin 0.3 mg tablet [address]/[facility][id number], [address] [place], [address], 3 11:05:18 Patient TargetsNo targets recorded. Patient Instructions Encounter Date Encounter Id Patient Instructions Last Modified By Organization Details Last Modified Time 03/26/2020 [id number] [email or web address] Not available 11:19:14 Reason for Referral None Reported. Results Created Date Observation Date Name Description Value Unit Range Abnormal Flag Note LastModifiedBy Organization Detail LastModifiedTime 04/28/1904/27/2021 VAGIN ITIS/ VAGIN OSIS, DNA PROBE moi sp. detection, direct probe Positi ve negati ve abnormal Not Available [facility] (Lab) [address] [place], [address], 04/28/2021 12:33:11 04/28/19 22 04/27/2021 VAGIN ITIS/ VAGIN OSIS, DNA PROBE gardnerella vag. detection, direct probe Negati ve negati ve Not Available [facility] (Lab) [address] [place], [address], 04/28/2021 12:33:11 04/28/19 22 04/27/2021 VAGIN ITIS/ VAGIN OSIS, DNA PROBE trichomonas vag. detection, direct probe Negati ve negati ve Not Available [facility] (Lab) [address] [place], [address], 04/28/2021 12:33:11 02/23/19 21 02/21/2020 MAMMO , scree felix, bilat eral No observ ation record ed. [facility] [address], [place], [address], 02/26/2020 12:01:32 03/23/19 21 03/23/2020 MAMMO , diagn ostic , digit al, unila teral No observ ation record ed. [facility] [address], [place], [address], 03/27/2020 21:55:38 04/09/19 MAMMO , scree felix, bilat eral No observ ation record ed. [facility] Not Available 2021 21:08:31 07/06/19 24 07/05/2023 MAMMO , scree felix, bilat eral No observ ation record ed. [address], [place], [address], 07/06/2023 14:17:32 Result Notes Documentation Provider Name and Address Organization Details Recorded Time Bacterial Vaginosis + Vaginitis Panel, Vaginal : test Stephy Mckeon CRISTOPHER- [address], [place], [address], [facility] 04/30/2021 14:07:53 Problems Name Problem SNOMED Code Status Onset Date Resolution Date Notes Provider Name and Address Organization Details Recorded Time Acute vaginiti s [id number] Completed 201804/26/2021 Acute vaginitis ;Practice ID: 0001 Vale wagner [facility] 14:53:27 Menopaus e present [id number] Completed 201804/26/2021 Menopausa l and female climacter ic states;Pr actice ID: 0001 Vale wagner [facility] 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 2 14:53:42 Speciali zed medical examinat ion Completed 201104/26/2021 Gynecolog ical Examinati on;Record ed Elsewhere : No Locati on: [facility] So urce: EHR Chron ic: N Practic e ID: 0001 Bill able Time: 08:45:00 AM Vale Jin [facility] 2 14:53:44 Screenin g for malignan t neoplasm of cervix Completed 201704/26/2021 Encounter for screening for malignant neoplasm of cervix;Re corded Elsewhere : No Locati on: [facility] So urce: EHR Chron ic: N Practic e ID: 0001 Bill able Time: 01:00:00 PM Vale Jin [facility] 2 14:53:37 Microsco pic hematuri a [id number] Completed 201104/26/2021 MICROSCOP IC HEMATURIA ;Recorded Elsewhere : No Locati on: [facility] So urce: EHR Chron ic: N Practic e ID: 0001 Bill able Time: 08:45:[address] [facility] 2 14:53:34 Adult health examinat ion Completed 201004/26/2021 Routine Medical Exam;Suresh rded Elsewhere : No Locati on: [facility] So urce: EHR Chron ic: N Practic e ID: 0001 Bill able Time: 02:30:00 PM Vale Jin [facility] 2 14:53:29 Screenin g for malignan t neoplasm of rectum Completed 201104/26/2021 Screening for malignant neoplasms of the rectum;Re corded Elsewhere : No Locati on: [facility] So urce: EHR Chron ic: N Practic e ID: 0001 Bill able Time: 08:45:00 AM Vale wagner [facility] [address] 14:53:[address] Concept Completed 201604/26/2021 Encntr for general adult medical exam w/o abnormal findings; Recorded Elsewhere : No Locati on: [facility] So urce: EHR Chron ic: N Practic e ID: 0001 Bill able Time: 03:25:00 PM Vale wagner [facility] 2 14:53:40 Evaluati on finding Completed 201504/26/2021 Hematuria , unspecifi ed;Record ed Elsewhere : No Locati on: [facility] So urce: EHR Chron ic: N Practic e ID: 0001 Bill able Time: 02:30:00 PM Vale Jin [facility] 2 14:53:31 Postmeno pausal bleeding [id number] Completed 201604/26/2021 Postmenop ausal bleeding; Practice ID: [id number] Vale Jin [facility] 2 14:53:36 Problem Notes None recorded. Procedures Surgical History Date Name Laterality Status Provider Name and Address Organization Details Recorded Time 07/05/19 24 Date of Last Mammogram completed Shania Villeda [facility] 04/15/2024 11:06:47 02/01/20 18 Date of Last Pap Smear completed Kristi Curry [facility] 03/25/2020 14:02:15 01/20/20 12 Most Recent Bone Density completed Vale Jin [facility] 04/27/2021 10:06:31 02/13/18 96 Total Hysterectomy completed DARIELA Dunlap [address], [place], [address], [facility] 04/15/2024 11:24:05 Dilation and Curettage completed Kristi Curry [facility] 03/25/2020 14:07:20 Colonoscopy completed Kristi Irving ZULEIKA [facility] 03/25/2020 14:07:34 Imaging Results None recorded. Procedure Notes None recorded. Medical Equipment None Reported. Allergies Allergen ID Allergen Name Allergen Category Reaction Reaction Severity Criticality Documentation Date Start Date Code Code System Note Provider Name and Address Organization Details Recorded Time 00174 codeine medicatio n Not available Not available Not available 01/31/2020 4835 RxNorm Comme nt: [facility]; [facility] 14:20:38 Medications Name Sig Start Date Stop Date Status Note LastModified by Organization Details LastModified Time Lorimor Thyroid 60 mg tablet TAKE 1 TABLET BY MOUTH EVERY DAY active Not Available Not Available No t Available Centrum Silver tablet 01/31 completed Prescrib ed Elsewher e: Yes Loca tion: Nader thais [facility] odify By: leticia fletcher DateTime : 01/05/20 11 06:40:52 PM Not Available Not Available Not Available biotin 5 mg capsule 01/08 completed Prescrib ed Elsewher e: Yes [facility] odify By: blanca prado DateTime : 01/05/20 11 06:40:52 PM Not Available Not Available Not Available fluconazo le 200 mg tablet Take 1 tablet every other day x 3 total doses. 04/11 completed Not Available Not Available Not Available clobetaso l 0.05 % topical cream apply by topical route 1-2 times a day a thin layer to the affected area(s) only as needed. 2024 active Not Available Not Available Not Avai lable Diflucan 150 mg tablet take 1 tablet by oral route once 03/22 completed Prescrib ed Elsewher e: No Locat ion: Suyapakelsey thais [facility] odify By: douglas fletcher DateTime : 06/07/19 09:32:59 AM Not Available Not Available Not Available folic acid 20 mg capsule 01/31 completed Prescrib ed Elsewher e: Yes Loca tion: Nader plascencia [facility] odify By: leticia marxunter DateTime : 01/05/20 11 06:40:52 PM Not Available Not Available Not Available Justyna Low Dose Aspirin 81 mg tablet,de layed release take 1 tablet by oral route every day 06/04 completed Prescrib ed Elsewher e: Yes Loca tion: Nader plascencia [facility] odify By: ammaksim marxunter DateTime : 01/09/20 12 08:45:00 AM Not Available Not Available Not Available Vitamin C 500 mg chewable tablet 500 mg every day by oral route. active Not Available Not Available No t Available Vitamins B Complex capsule 04/15 completed Prescrib ed Elsewher e: Yes Loca tion: Nader plascencia [facility] odify By: salbador Arteaga ntsoo DateTime : 01/05/20 11 06:40:52 PM Not Available Not Available Not Available amoxicill in 500 mg tablet TAKE 1 TABLET BY MOUTH THREE TIMES DAILY UNTIL GONE 04/15 completed Not Available Not Available Not Available meclizine 25 mg tablet TAKE 1 TABLET BY MOUTH TWICE DAILY NEEDED FOR DIZZINES S 04/15 completed Not Available Not Available Not Available clotrimaz ole-betam ethasone 1 %-0.05 % topical cream APPLY TO AFFECTED AREA(S) AND SURROUND ING AREA(S) TWICE DAILY FOR 2 WEEKS EVERY AM & PM NEEDED-- USE SPARINGL Y. 04/11 completed Not Available Not Available Not Available DML Forte topical cream 01/31 completed Prescrib ed Elsewher e: Yes Loca tion: Nader plascencia [facility] odify By: leticia fletcher DateTime : 01/05/20 11 06:40:52 PM Not Available Not Available Not Available Vitamin C 500 mg capsule,e xtended release 03/22 completed Prescrib ed Elsewher e: Yes Loca tion: Nader plascencia [facility] odify By: salbador Arteaga ntsoo DateTime : 01/05/20 11 06:40:52 PM Not Available Not Available Not Available Premarin 0.45 mg tablet take 1 tablet by oral route every day 01/14 completed Prescrib ed Elsewher e: No Locat ion: Nader plascencia [facility] odify By: salbador Arteaga nter DateTime : 01/15/20 14 01:30:00 PM Not Available Not Available Not Available Premarin 0.625 mg/gram vaginal cream insert by vaginal route every day cyclical ly, 3 weeks on and 1 week off 03/22 completed Prescrib ed Elsewher e: Yes Loca tion: Nader plascencia [facility] odify By: salbador Arteaga nter DateTime : 01/05/20 11 06:40:52 PM Not Available Not Available Not Available Premarin 0.3 mg tablet TAKE 1 TABLET BY MOUTH EVERY DAY 04/11 completed Not Available Not Available Not Available Calcio Leopoldo 500 mg tablet 01/08 completed Prescrib ed Elsewher e: Yes Loca tion: Nader plascencia [facility] odify By: blanca prado DateTime : 01/05/20 11 06:40:52 PM Not Available Not Available Not Available chlorhexi dine gluconate 0.12 % mouthwash RINSE MOUTH WITH 15 ML FOR 30 SECONDS TWICE DAILY AFTER TOOTHBRU SHING. SPIT AFTER RINSING. DO NOT SWALLOW 04/15 completed Not Available Not Available Not Available calcium citrate-v itamin D3 active Not Available Not Available No t Available Multivita min 50 Plus active Not Available Not Available Not Available Natural B-100 Complex 100 mg tablet 01/08 completed Prescrib ed Elsewher e: Yes Loca tion: Nader plascencia [facility] odify By: blanca prado DateTime : 01/05/20 11 06:40:52 PM Not Available Not Available Not Available naproxen sodium 220 mg capsule 01/08 completed Prescrib ed Elsewher e: Yes Loca tion: Nader plascencia [facility] odify By: blanca prado DateTime : 01/05/20 11 06:40:52 PM Not Available Not Available Not Available Caltrate 600 plus D 03/22 completed Prescrib ed Elsewher e: Yes Loca tion: Nader plascencia [facility] E ncounter DateTime : 01/09/20 12 08:45:00 AM Not Available Not Available Not Available ID NOW COVID-19 Test Kit TEST DIRECTED TODAY 04/15 completed Not Available Not Available Not Available Vitals Date Recorded Body height Body mass index (BMI) Body weight Systolic And Diastolic Provider Name and Address Organization Details Last Updated DateTime 03/26/2020 160.02 cm 29.4 kg/m2 26289.33 g 136/75 mm[Hg] Kristi Curry [facility] 03/26/2020 10:43:09 Date Recorded Systolic And Diastolic Provider Name and Address Organization Details Last Updated DateTime 04/11/2022 112/70 mm[Hg] Stephy Mckeon, [facility]- [address], [place], [address], [facility] 04/11/2022 11:22:38 Date Recorded Body weight Provider Name an d Address Organization Details Last Updated DateTime 04/11/2022 02610.93 g Vale Abdul [facility] 04/11/2022 11:04:50 Date Recorded Systolic And Diastolic Provider Name and Address Organization Details Last Updated DateTime 04/15/2024 130/68 mm[Hg] Fany Garcia [facility] 04/15/2024 11:34:39 Date Recorded Body height Body mass index (BMI) Body weight Systolic And Diastolic Provider Name and Address Organization Details Last Updated DateTime 04/15/2024 160.02 cm 27.7 kg/m2 39025.85 g 146/79 mm[Hg] Shania Villeda [facility] 04/15/2024 11:04:52 Date Recorded Body weight Systolic And Diastolic Provider Name and Address Organization Details Last Updated DateTime 04/27/2021 82549.64 g 126/74 mm[Hg] [facility] 04/27/2021 10:02:45 Social History Question Answer Notes LastModified by Organizat ion Details LastModified Time Tobacco Smoking Status Never Smoker Vale Abdul null, [facility] 04/11/2022 11:05:01 How Many Years Have You Consumed Alcohol? 60 Information not available 04/11/2022 Are You Blind Or Do You Have Difficulty Seeing? No Information n ot available 04/26/2021 What Is Your Level Of Caffeine Consumption? Occasional Information not available 04/11/2022 How Much Tobacco Do You Chew? None Information not available 04/11/2022 In The 14 Days Before Symptom Onset, Have You Had Close Contact With A Laboratory-confirm ed COVID-19 While That Case Was Ill? No Information n ot available 04/11/2022 In The 14 Days Before Symptom Onset, Have You Had Close Contact With A Person Who Is Under Investigation For COVID-19 While That Person Was Ill? No Information not available 04/11/2022 Have You Been To An Area Known To Be High Risk For COVID-19? No Information not available 04/11/2022 Are You Deaf Or Do You Have Serious Difficulty Hearing? No Information not available 04/26/2021 What Type Of Diet Are You Following? REGULAR Information n ot available 04/26/2021 What Is The Highest Grade Or Level Of School You Have Completed Or The Highest Degree You Have Received? [id number] Information not available 04/11/2022 How Many Days Of Moderate To Strenuous Exercise, Like A Brisk Walk, Did You Do In The Last 7 Days? 0 Information not available 04/11/2022 Are There Any Guns Present In Your Home? Yes Information not available 04/11/2022 Do You Use Protection During Sex? No Information not available 04/11/2022 Do You Use Your Seat Belt Or Car Seat Routinely? Yes Information not available 04/26/2021 Do You Have Smoke And Carbon Monoxide Detectors In Your Home? Yes Information not available 04/26/2021 How Much Tobacco Do You Smoke? No Information not available 04/11/2022 Do You Use Sunscreen Routinely? Yes Information not available 04/26/2021 Has Tobacco Cessation Counseling Been Provided? No Information not available 04/11/2022 Have You Used IV Drugs? No Information not available 04/11/2022 Do You Have Difficulty Walking Or Climbing Stairs? No Information not available 04/11/2022 Sex: Unknown Functional Status Question Answer Note LastModified by Organizat ion Details LastModified Time Do you use any illicit or recreational drugs? No Information not available 03/25/2020 Do you or have you ever used any other forms of tobacco or nicotine? No Information not available 04/11/2022 What is your level of alcohol consumption? Occasional Information not available 04/11/2022 Are you able to walk? YESWOREST Information not available 04/26/2021 Are you able to care for yourself? Yes Information n ot available 04/11/2022 What is your occupation? retired Information not available 04/11/2022 Do you have difficulty dressing or bathing? No Information not available 04/11/2022 What is your exercise level? Moderate Information not available 04/11/2022 Mental Status Question Answer Note LastModified by Organization D etails LastModified Time Do you feel stressed (tense, restless, nervous, or anxious, or unable to sleep at night)? [id number] Information not available 04/11/2022 Family History Relationship Description Onset Age of this Age Resolved Age Notes LastModified by Organization Details LastModified Time Father Hypertensive disorder Not available 2021 10:02:49 Father Coronary arterioscler osis [email or web address] Not available 04/2024 10:56:06 Father Congenital heart disease [email or web address] Not available 04/2024 10:56:06 Father Hypertensive disorder [email or web address] Not available 04/2024 10:56:06 Mother Coronary arterioscler osis [email or web address] Not available 04/2024 10:56:06 Mother Congenital heart disease [email or web address] Not available 04/2024 10:56:06 Mother Psychotic disorder [email or web address] Not available 04/2024 10:56:06 Sister Chronic hepatitis [email or web address] Not available 04/2024 10:56:06 Sister Carcinoma in situ of breast [email or web address] Not available 04/2024 10:56:06 Sister Infiltrating duct carcinoma of breast [email or web address] Not available 04/2024 10:56:06 Sister Malignant tumor of breast Not available 2021 10:02:49 Sister Malignant tumor of breast [email or web address] Not available 04/2024 10:56:06 Medical History Condition Response Thyroid Problems Y Gynecological History Statement/Question Response If Post Menopausal, Age at Menopause 37 Abnormal Pap N Date of Last Mammogram 07/05/2023 Most Recent Bone Density 01/20/2012 Sexually Active? N STIs/STDs N Age of first menstrual cycle 13 HPV Vaccine N Date of Last Pap Smear 01/31/2018 Sexual Problems? N Current Control Method Menopause Desired Control Method None Obstetrics History GPAL:G 1 P 1 0 0 0 Type Value Full Term 1 Total 1 Past Encounters Encounter ID Performer Location Encounter Start Date Encounter Closed Date Diagnosis/Indication Diagnosis SNOMED-CT Code Diagnosis ICD10 Code Diagnosis Note [id number] Stephy Mckeon , [facility] [address] [address] 03/26/2020 10:30:10 03/26/2020 11:22:19 Gynecologic examination [id number] Z01.419 Take Calcium with Vitamin D 12-1500mg daily. Do monthly self breast exams. It is advised to get annual flu shot in the fall and she could obtain at [facility] or [facility] care clinic. If you haven't received the Tdap vaccine in the last 10 years you should obtain one as well. Have mammogram yearly, bone density every 2-3 years and colonoscop y every 5-10 years depending on findings and history. Engage in daily exercise of low impact aerobic exercise 45-60 minutes 4-5 times weekly. Avoid tobacco and illicit drugs as well as using moderation with alcohol intake less than 1-2 8 oz beverages daily. This lifestyle behavior pattern will lead to less health conditions and longer life span. If BMI greater than 25 weight watchers or dietary consult advised. Questions have been answered. Patient appears to understand instructio ns, but if you have any further questions call or respond to this email Mammo done. Colon/dexa utd by PCP No issues Medicaid supports q2yr wellness. RTO x 1yr for med check Climacteric flushing [phone] [id number] N95.1 We discussed Menopausal Hormone therapy (MHT) for women with intact uterus with the goals of reliving vaso-motor sx's using estrogen/p rogestin therapy (EPT) using lowest doses for shortest duration in women 40-59yo. Contraindi cations include: Hx of DVT or thrombolic events, High cholestero l, Hx of breast cancer, known CHD, active liver disease, unexplaine d vag bleeding, high risk endometria l cancer, TIA. Side effects can include but are not limited to: Irregular vag bleeding,, breast tenderness , nausea, weight changes, libido changes, nausea. Adverse Rxn: Elevated BP migraine w/ visual changes, breast cancer dx, SC/stroke, DVT/PE, Endometria l cancer. Please contact office with any new or worsening side effects or adverse reactions. Or if a medical emergency please go to nearest ED/[facility] care for further evaluation . Hx of full hysterecto my 89 for non-cancer indication s. She has been on Premarin 0.3mg daily since her hysterecto my. She verbalized understand ing of risks in general of HRT & risks associated with continuing past age 60yo. Her routine labs updated and look good. BP is great and wnl. Overall doing very very well. She has tried to come off meds but ends up with horrid hot flashes. Vaginitis 69205112 N76.0 Uses steroid ointment prn less than 1-2x/mo for occasional vag irritation . RF sent 15gm. Does not feel needs vag premarin anymore. [id number] Stephy Mckeon [facility] [address] [address] 04/27/2021 09:27:12 04/27/2021 10:59:16 Atrophic vaginitis [id number] N95.2 Today we reviewed VCG's in detail bc her exam only seems to display expected postmenopa usal changes. A vaginitis swab was sent as a precaution . She will: 1. Start with vaginal moisturzin g with crisco daily at minimum 2x/day. 2. Sleep without panty liner & underwear at night. Cotton underwear is okay but good to sleep without underwear at night as well. 3. Use Steroid ointment sparingly as this can thin the skin as well. [id number] [facility] [address] [address] 04/11/2022 10:54:45 04/11/2022 12:07:43 Gynecologic examination 98980156 Z01.419 Take Calcium with Vitamin D 12-1500mg daily. Do monthly self breast exams. It is advised to get annual flu shot in the fall and she could obtain at [facility] or [facility]. If you haven't received the Tdap vaccine in the last 10 years you should obtain one as well. Have mammogram yearly, bone density every 2-3 years and colonoscop y every 5-10 years depending on findings and history. Engage in daily exercise of low impact aerobic exercise 45-60 minutes 4-5 times weekly. Avoid tobacco and illicit drugs as well as using moderation with alcohol intake less than 1-2 8 oz beverages daily. This lifestyle behavior pattern will lead to less health conditions and longer life span. If BMI greater than 25 weight watchers or dietary consult advised. Questions have been answered. Patient appears to understand instructio ns, but if you have any further questions call or respond to this email Pap/hpv USPSTF recommends against screening for cervical cancer in women older than 65yo, those who've had a hysterecto my for non-cancer indication s, & who have had adequate prior screening & are not otherwise at high risk for cervical cancer. STD Screen declined Genetic Screen discussed Colon Screen PCP Dexa Screen PCP Routine Labs PCPMammo ordered Screening mammography 24 [id number] Z12.31 Genital li henderson sclerosus [id number] L90.0 [id number] DARIELA Dunlap [place] [address] [address] 04/15/2024 10:53:20 04/15/2024 11:35:46 Gynecologic examination [id number] Z01.419 WWEPap - No further paps indicatedS TI screen - declinedMa mmogram - UTD/PCPCol on cancer screening - UTD/PCP ordersDexa - UTD/PCPRou lo labs - UTD/PCPBP precaution s reviewed, encouraged PCP f/uRTC in 1 yr or sooner if needed Do monthly self breast exams.It is advised to get annual flu shot in the fall and she could obtain at local pharmacy. If you haven't received the Tdap vaccine in the last 10 years you should obtain one as well.Have mammogram yearly, bone density every 2-3 years and stay up to date on colon cancer screening. Engage in regular exercise. Avoid tobacco and illicit drugs. This lifestyle behavior pattern will lead to less health conditions and longer life span. If BMI greater than 25 dietary consult advised.Qu estions have been answered. Health Concerns Section Related Observation LastModified by Organization Detai ls LastModified Time None Recorded Concern Status LastModified by Organization Details LastModified Time None Recorded Advance Directives Directive None Recorded Payers Insurance Date Sequence Insurance Name Policy Number Policy Bautista Covered Member ID Bautista Member ID Guarantor Name 04/15/2024 1 [place] Anitha Avelino Gianna [id number] Anitha Avelino Gianna 04/15/2024 1 [place] Anitha A Gianna [id number] Anitha A Gianna 04/15/2024 2 [facility] (MEDICARE SUPPLEMENT) Anitha Avelino Gianna [id number] Anitha A Gianna 04/15/2024 1 [facility] (MEDICARE REPLACEMENT/A DVANTAGE - PPO) [id number] Anitha A Gianna [id number] Anitha A Gianna 04/15/2024 1 [facility] (MEDICARE REPLACEMENT/A DVANTAGE - PPO) [id number] Anitha A Gianna [id number] Anitha A Gianna Notes Date Note Type Note Provider Name and Address Organization Details Recorded Time 03/26/2020 text/html Annual GYNReport ed bypatient.History:n o gynecologic complaints Menstrual cycle:postmenopause /Posthysterectomy 96 Urinary symptoms:No hematuria; No incontinence Vulva:No genital lesion Vagina:Normal vaginal discharge Breast:No breast pain; No breast lump; No nipple discharge Sexual complaints:No sexual complaints; No pain during intercourse; Normal libido Menopausal Symptoms:No menopausal symptoms; Normal vaginal lubrication Psychological symptoms:No depression; No anxiety; No PMDD Preventive measures:Encourage self breast examination; Encourage regular exercise; Encourage no tobacco use; Encourage regular mammograms starting age 40 Stephy Mckeon, CRISTOPHER-BC [address], [place], [address], [facility] 04/07/2020 12:38:02 04/27/2021 text/html Here today to discuss some random vaginal itch of the skin in the groin & ext skin of vulva a couple times a month. She is here to ensure that she should not be concerned about any other types of skin issues or infections.She is not SA for >20yrs.Very healthy & physically active.Wears a daily panty liner for an occasional dribble due to RIC but does not have a prolapse.This is not a huge problem for her but worried when she goes out she'll have some dribbles of urine and ruin her clothing; never loses her bladder completely. Neg GI issuesNeg Urinary urgency, frequency, dysuria.Neg Abd/pelvic/flank painNeg vag d/c, odor Stephy Mckeon [facility] [address], [place], [address], [facility] 04/27/2021 10:26:09 04/11/2022 text/html Annual Image Scientist Post-MenopausalRepo rted bypatient.Menopausa l Symptoms:no menopausal symptoms; normal vaginal lubrication Vaginal Bleeding:history of menopause having occurred; no history of post menopausal bleeding Urinary Symptoms:no hematuria; no incontinence; no nocturia; no urinary frequency Vulva:no genital lesion; no vulvar atrophy Vagina:normal vaginal discharge; no vaginal atrophy Breast:no breast lump; no nipple discharge; no breast pain Sexual Complaints:no sexual complaints Psychological Symptoms:no depression; no anxiety Preventive Measures:encourage regular mammograms starting age 40; encourage self breast examination; encourage regular exercise; encourage no tobacco use; needs to schedule mammogram; history of recent colonoscopy Stephy Mckeon RCISTOPHER- [address], [place], [address], [facility] 04/11/2022 11:25:09 04/15/2024 text/html Annual Image Scientist Post-MenopausalRepo rted bypatient.Menopausa l Symptoms:no menopausal symptoms; normal vaginal lubrication Vaginal Bleeding:history of menopause having occurred; no history of post menopausal bleeding Urinary Symptoms:no hematuria; no incontinence; no nocturia; no urinary frequency Vulva:no genital lesion; no vulvar atrophy Vagina:normal vaginal discharge; no vaginal atrophy Breast:no breast lump; no nipple discharge; no breast pain Sexual Complaints:no sexual complaints Psychological Symptoms:no depression; no anxiety Preventive Measures:encourage regular mammograms starting age 40; encourage self breast examination; encourage regular exercise; encourage no tobacco use; mammogram performed within the past yearNotes:78yo wweh/o hyst (ovaries remain) at age 39 for AUBno h/o abnormal papsmammogram - scheduled olonoscopy UTD per ptdexa last 2 yrs ago, ordered through PCP uses crisco PRN for vaginal drynessuses clobetasol 1-2 times per month for vulvar irritation Fany Garcia [facility], [facility] 04/15/2024 11:34:55 OBGyn Episode Ob Episode Information Episode Created Date Number of Fetuses Patient Bloodtype Patient rh Status Prepregnancy Weight lbs Domestic Partner Domestic Partner Phone Father Name Cover Stripper Status 03/25/19 21 1 CLOSED Fetus Data First Name Last Name Admitted to NICU Weight (g) Sex Living Outcome Pediatric Complications Fetus ID Race Codes Race Delivery Type Full Term [id number] Vaginal Delivery Juan Miguel Calculation Initial Juan Miguel Date Initial Exam Date Initial Exam Provider Initial Ultrasound Date Last Menstrual Period Date Ultra Sound Weeks Gestation 0 Eighteen To Twenty Week Juan Miguel Update Ultra Sound Date Fundal Height At Umbil Quickening Date Ultra Sound Latest Weeks Gestation Final Juan Miguel Confirmed By Final Juan Miguel Confirmed Date Final Juan Miguel Date Ultra Sound Latest Days Gestation 0 0 Menstrual History Last Menstrual Date Menses Monthly On Bcp Conception Prior Menses Frequency Hcg Plus Date Menarche Onset Age Delivery Information Delivery Date Delivery Type Labor Anesthesia Weeks Gestation Incision Type Labor Labor Length Hrs Delivered By Post Complications Tubal Sterilization Discharge Date Comments 2 Discharge Information Feeding Method Contraceptive Method Maternal HG B and HCT Levels
--- OUTSIDE RECORDS SUMMARY | 2024-08-15 10:17 | XMS_ITS | Encounter Summary ---
Author Organization [facility] Address 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
--- OUTSIDE RECORDS SUMMARY | 2024-08-15 10:17 | XMS_ITS | Encounter Summary ---
Author Organization [facility] Address [address] [place] [address] Care Team Providers Care Strip Machine Operator Name Role Phone Raul Gutierrez MD Primary Care Provider [phone] Encounter Details Date Type Department Care Team (Late st Contact Info) Description 12/28/2004 Outpatient Historical [facility] DEPT Raul Gutierrez MD [address] [place] [address] HEMATURIA (Primary Dx) Social History Tobacco Use Types Packs/Day Years Used Date Smoking Tobacco: Never Assessed Comments Unknown Sex and Gender Information Value Date Recorded Sex Assigned at Not on file Legal Sex Female 5:20 AM DUST SAMPLER Gender Identity Not on file Sexual Orientation Not on file documented as of this encounter Plan of Treatment Not on file documented as of this encounter Visit Diagnoses Diagnosis Hematuria- Primary documented in this encounter Care Teams Strip Machine Operator Relationship Specialty Start Date End Date Raul Gutierrez MD [address] [place] [address] PCP - General 12/20/04 03/25/15 documented as of this encounter
--- OUTSIDE RECORDS SUMMARY | 2024-08-15 10:17 | XMS_ITS | Encounter Summary ---
Author Organization [facility] Address [address] [place] [address] Care Team Providers Care Sap Bi Architect Name Role Phone Raul Gutierrez MD Primary Care Provider [phone] Encounter Details Date Type Department Care Team (Latest Contact Info) Description 11/23/2007 Outpatient Historical [facility] Raul Acosta MD [address] [place] [address] Routine General Medical Examination at a Health Care Facility Social History Tobacco Use Types Packs/Day Years Used Date Smoking Tobacco: Never Alcohol Use Standard Drinks/Week Comments Yes 0 (1 standard drink = 0.6 oz pur e alcohol) Comments No Sex and Gender Information Value Date Recorded Sex Assigned at Not on file Legal 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
--- OUTSIDE RECORDS SUMMARY | 2024-08-15 10:17 | XMS_ITS | Encounter Summary ---
Author Organization [facility] Address [address] [place] [address] Care Team Providers Care Roller Turner Name Role Phone Raul Gutierrez MD Primary Care Provider [phone] Encounter Details Date Type Department Care Team (Latest Contact Info) Description 11/01/2005 Outpatient Historical [facility] Internal Medicine [place] [address] [place] [address] Raul Gutierrez MD [address] [place] [address] Routine General Medical Examination at a Health Care Facility (Primary Dx) Social History Tobacco Use Types Packs/Day Years Used Date Smoking Tobacco: Never Assessed Comments Unknown Sex and Gender Information Value Date Recorded Sex Assigned at Not on file Legal Sex Female 5:20 AM DIRECTOR OF EVENT MARKETING Gender Identity Not on file Sexual Orientation Not on file documented as of this encounter Plan of Treatment Not on file documented as of this encounter Procedures Procedure Name Priority Date/Time Associated Diagnosis Comments ALT Routine 11/01/2005 10:35 AM CDT TSH Routine 11/01/2005 10:35 AM CDT LIPID PANEL Routine 11/01/2005 10:35 AM CDT BASIC METABOLIC PANEL Routine 11/01/2005 10:35 AM CDT documented in this encounter Results * TSH (11/01/2005 10:35 AM CDT) TSH 2.57 0.27 - 4.20 uU/mL INTERFACE SYSTEM 11/01/2005 10:3 5 AM CDT Raul Gutierrez MD CHEMISTRY ORDERABLES Final Res ult Performing Organization Address [facility] Co de Phone Number INTERFACE SYSTEM Refer to clinic/hospital department * (ABNORMAL) BASIC METABOLIC PANEL (11/01/2005 10:35 AM CDT) GLUCOSE 101(H) 65 - 99 mg/dL INTERFACE SYSTEM CREATININE 0.9 0.4 - 1.2 mg/dL INTERFACE SYSTEM CALCIUM 9.2 8.4 - 10.2 mg/dL INTERFACE SYSTEM BUN 16 6 - 20 mg/dL INTERFACE SYSTEM SODIUM 139 135 - 145 mmol/L INTERFACE SYSTEM POTASSIUM 4.0 3.5 - 4.9 mmol/L INTERFACE SYSTEM CHLORIDE 103 96 - 108 mmol/L INTERFACE SYSTEM CO2 25 22 - 30 mmol/L INTERFACE SYSTEM 11/01/2005 10:3 5 AM CDT Raul Gutierrez MD CHEMISTRY ORDERABLES Final Res ult Performing Organization Address [facility] Phone Number INTERFACE SYSTEM Refer to clinic/hospital department * ALT (11/01/2005 10:35 AM CDT) ALT 14 0 - 31 U/L INTERFACE SYSTEM 11/01/2005 10:3 5 AM CDT Raul Gutierrez MD CHEMISTRY ORDERABLES Final Res ult Performing Organization Address [facility] Co de Phone Number INTERFACE SYSTEM Refer to clinic/hospital department * (ABNORMAL) LIPID PANEL (11/01/2005 10:35 AM CDT) CHOLESTEROL 249(H) 100 - 199 mg/dL INTERFACE SYSTEM TRIGLYCERIDE 50 10 - 149 mg/dL INTERFACE SYSTEM HDL 94(H) 40 - 59 mg/dL INTERFACE SYSTEM CHOL/HDL RATIO 2.6 2.0 - 5.0 INTER FACE SYSTEM LDL CALCULATED 145(H) <=99 mg/dL INTERFACE SYSTEM LIPID PANEL COMMENT See Below INTERFACE SYSTEM Comment: The adult ATP and pediatric NCEP classifications for lipids are available on the [facility] Intranet at: [email or web address] Select: Lab Policies and Procedures Select: Reference Ranges - Lipids 11/01/2005 10:3 5 AM CDT us Raul Gutierrez MD CHEMISTRY ORDERABLES Final Res ult INTERFACE SYSTEM Refer to clinic/hospital department documented in this encounter Visit Diagnoses Diagnosis Routine general medical examination at a health care facility- Primary documented in this encounter Care Teams Roller Turner Relationship Specialty Start Date End Date Raul Gutierrez MD [address] [place] [address] PCP - General 12/20/04 03/25/15 documented as of this encounter
--- OUTSIDE RECORDS SUMMARY | 2024-08-15 10:17 | XMS_ITS | Encounter Summary ---
Author Organization [facility] Address [address] [place] [address] Care Team Providers Care Property Worker Name Role Phone Raul Gutierrez MD Primary Care Provider [phone] Encounter Details Date Type Department Care Team (Latest Contact Info) Description 03/19/2004 Outpatient Historical [facility], [address] Raul Gutierrez MD [address] [place] [address] HYPOTHYROIDISM NOS (Primary Dx) Social History Tobacco Use Types Packs/Day Years Used Date Smoking Tobacco: Never Assessed Comments Unknown Sex and Gender Information Value Date Recorded Sex Assigned at Not on file Legal Sex Female 5:20 AM DUST COLLECTOR OPERATOR Gender Identity Not on file Sexual Orientation Not on file documented as of this encounter Plan of Treatment Not on file documented as of this encounter Procedures Procedure Name Priority Date/Time Associated Diagnosis Comments TSH Routine 03/19/2004 9:25 AM DUST COLLECTOR OPERATOR documented in this encounter Results * TSH (03/19/2004 9:25 AM DUST COLLECTOR OPERATOR) TSH 0.68 0.27 - 4.20 uU/mL INTERFACE SYSTEM 03/19/2004 9:25 AM DUST COLLECTOR OPERATOR us Raul Gutierrez MD CHEMISTRY ORDERABLES Final Res ult INTERFACE SYSTEM Refer to clinic/hospital department documented in this encounter Visit Diagnoses Diagnosis Unspecified hypothyroidism- Primary documented in this encounter Care Teams Property Worker Relationship Specialty Start Date End Date Raul Gutierrez MD [address] [place] [address] PCP - General 12/20/04 03/25/15 documented as of this encounter
--- OUTSIDE RECORDS SUMMARY | 2024-08-15 10:17 | XMS_ITS | Encounter Summary ---
Author Organization [facility] Address [address] [place] [address] Care Team Providers Care Investigator Narcotics Name Role Phone Raul Gutierrez MD Primary Care Provider [phone] Encounter Details Date Type Department Care Team (Late st Contact Info) Description 11/16/2004 Outpatient Historical [facility] Internal Medicine [facility] [address] [place] [address] Raul Gutierrez MD [address] [place] [address] Social History Tobacco Use Types Packs/Day Years Used Date Smoking Tobacco: Never Assessed Comments Unknown Sex and Gender Information Value Date Recorded Sex Assigned at Not on file Legal Sex Female 5: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 MICA PARTS 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 Gender Identity Not on file Sexual Orientation Not on file documented as of this encounter Last Filed Vital Signs Vital Sign Reading Time Taken Comments Blood Pressure 124/72 11/16/2004 2:00 PM CDT Pulse 84 11/16/2004 2:00 PM CDT Temperature 36.7 C (98 F) 11/16/2004 2:00 PM CDT Respiratory Rate 12 11/16/2004 2:00 PM CDT Oxygen Saturation - - Inhaled Oxygen Concentration - - Weight 72.6 kg (160 lb) 11/16/2004 2:00 PM CDT Height 162.6 cm (5' 4) 11/16/2004 2:00 PM CDT Body Mass Index 27.46 11/16/2004 2:00 PM CDT documented in this encounter Plan of Treatment Not on file documented as of this encounter Visit Diagnoses Not on filedocumented in this encounter Care Teams Investigator Narcotics Relationship Specialty Start Date End Date Raul Gutierrez MD [address] [place] [address] PCP - General 12/20/04 03/25/15 documented as of this encounter
--- OUTSIDE RECORDS SUMMARY | 2024-08-15 10:18 | XMS_ITS | Encounter Summary ---
Author Organization [facility] Address 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
--- OUTSIDE RECORDS SUMMARY | 2024-08-15 10:18 | XMS_ITS | Encounter Summary ---
Author Organization [facility] Address [address] [place] [address] Care Team Providers Care Production Line Assembler Name Role Phone Raul Gutierrez MD Primary Care Provider [phone] Encounter Details Date Type Department Care Team (Late st Contact Info) Description 01/12/2004 Outpatient Historical [facility] GI LAB Juan Ramon Wilson MD [address] [id number] SCREENING MAL NEOP-COLON (Primary Dx) Social History Tobacco Use Types Packs/Day Years Used Date Smoking Tobacco: Never Assessed Comments Unknown Sex and Gender Information Value Date Recorded Sex Assigned at Not on file Legal Sex Female 5:20 AM CERTIFIED PEST CONTROL TECHNICIAN Gender Identity Not on file Sexual Orientation Not on file documented as of this encounter Plan of Treatment Not on file documented as of this encounter Visit Diagnoses Diagnosis Special screening for malignant neoplasms, colon- Primary documented in this encounter Care Teams Production Line Assembler Relationship Specialty Start Date End Date Raul Gutierrez MD [address] [place] [address] PCP - General 12/20/04 03/25/15 documented as of this encounter
== END 2024-08-15 10:00 | disposition home or self-care (01) ==
LOC: ANHIMG 10:06
DX: Z12.31 Encounter for screening mammogram for malignant neoplasm of breast (principal); Z80.3 Family history of malignant neoplasm of breast
CPT/HCPCS: 77063; 77067